=== PATIENT | female | born 1975 | race Asian ===

== ENCOUNTER 2017-12-05 11:13 | Inpatient (IN) | payer OTHER ==
[~2017-12-05] VITALS: Ht 160 cm; Wt 66.0 kg
[~2017-12-05 11:13] MED LIST: ALBU8HFA IH; HYDR-3965 PO; INSNOV SQ; IPRNEB IH; LABE300T PO; PANT40TA25 PO
[2017-12-05 11:47] LABS: BASOPHILS # (AUTO) 0.12 K/uL (0.00-0.20); BASOPHILS % (AUTO) 0.7 % (0.0-2.0); EOSINOPHILS # (AUTO) 0.03 K/uL (0.00-0.70); EOSINOPHILS % (AUTO) 0.19 % (1.0-6.0); HEMATOCRIT 41.6 % (36-46); HEMOGLOBIN 13.7 g/dL (12.0-16.0); LYMPHOCYTES # (AUTO) 2.2 K/uL (1.0-4.8); LYMPHOCYTES % (AUTO) 12.9 % (22.0-44.0); MEAN CORPUSCULAR HEMOGLOBIN 31.2 pg (26.0-34.0); MEAN CORPUSCULAR VOLUME 95 fL (80-100); MONOCYTES # (AUTO) 0.3 K/uL (0.1-1.0); MONOCYTES % (AUTO) 1.9 % (2.0-9.0); NEUTROPHILS % (AUTO) 84.4 % (40.0-70.0); PLATELET COUNT (AUTO) 199 K/uL (150-450); RED CELL DISTRIBUTION WIDTH 16.8 % (11.5-14.5)
[2017-12-05] MEDS ORDERED: ONDANSETRON HCL 4 MG/2 ML VIAL IVP ONE (12:00)
[2017-12-05] MEDS ORDERED: NITROGLYCERIN 2% (1 GM=INCH) PACKET TP ONE (12:00)
[2017-12-05 12:01] LABS: PROTHROMBIN TIME 10.4 SEC (9.4-11.6)
[2017-12-05] MEDS ORDERED: MORPHINE SULFATE 4 MG/ML SYRINGE IVP ONE (12:15)
[2017-12-05 12:27] LABS: ALANINE AMINOTRANSFERASE 21 U/L (12-78); ALKALINE PHOSPHATASE 75 U/L (46-116); ANION GAP 17 mmol/L (8-16); ASPARTATE AMINOTRANSFERASE 18 U/L (15-37); BILIRUBIN,TOTAL 0.4 mg/dL (0.1-1.0); CALCIUM, TOTAL 10.4 mg/dL (8.8-10.5); CARBON DIOXIDE 17 mmol/L (22-29); CHLORIDE 96 mmol/L (98-107); CREATINE KINASE MB 4.4 ng/mL (0-5); CREATINE KINASE, TOTAL 170 U/L (26-192); CREATININE 13.01 mg/dL (0.60-1.30); GLOMERULAR FILTR. RATE CALC 3 mL/min (>60); GLUCOSE,RANDOM 223 mg/dL (70-110); SODIUM SERUM 130 mmol/L (136-145); TOTAL PROTEIN, SERUM 8.4 g/dL (6.4-8.2)
[2017-12-05] MEDS ORDERED: LORazepam 2 MG/ML VIAL IVP ONE (12:30)
[2017-12-05 12:36] LABS: POTASSIUM 7.3 mmol/L (3.5-5.1); UREA NITROGEN, BLOOD 110 mg/dL (7-18)
[2017-12-05] MEDS ORDERED: DEXTROSE 50%-WATER 25 GM/50 ML SYRINGE IVP ONE (12:45)
[2017-12-05] MEDS ORDERED: ALBUTEROL SULFATE 2.5 MG/0.5 ML NEB SOLUTION NEB ONE (12:45)
[2017-12-05] MEDS ORDERED: INSULIN REGULAR, HUMAN 100 UNITS/ML IVP ONE (12:45)
[2017-12-05] MEDS ORDERED: SODIUM BICARBONATE [ADULT] 8.4% 50 MEQ/50 ML SYRINGE IVP ONE (12:45)
[2017-12-05] MEDS ORDERED: 0.9% SODIUM CHLORIDE 5 ML NEB SOLUTION NEB ONE (12:55)
[2017-12-05] MEDS: SODIUM POLYSTYRENE SULFONATE 15 GM/60 ML SUSPENSION BOTTLE PO ONE ×2 (12:55→13:25)
[2017-12-05] MEDS ORDERED: CALCIUM GLUCONATE 100 MG/ML 10 ML IVP ONE (13:00)
[2017-12-05] MEDS ORDERED: ACETAMINOPHEN 325 MG TABLET PO PRN ×2 (13:15→15:45)
[2017-12-05] MEDS ORDERED: 0.9% SODIUM CHLORIDE 10 ML SYRINGE IVP PRN (13:15)
[2017-12-05 13:32] LABS: LIPASE 1141 U/L (73-393)
[2017-12-05 14:27] VITALS: BP 150/92
[2017-12-05] MEDS ORDERED: LIDOCAINE HCL/PF 1% 2 ML VIAL IM ONE (14:51)
[2017-12-05] MEDS ORDERED: HydrALAZINE HCL 20 MG/ML VIAL IVP PRN (15:45)
[2017-12-05] MEDS ORDERED: BISACODYL 10 MG RECTAL RECTAL SUPPOSITORY PR PRN (15:45)
[2017-12-05] MEDS ORDERED: MAGNESIUM HYDROXIDE SUSPENSION 30 ML UDCUP PO PRN (15:45)
[2017-12-05 15:51] VITALS: BP 126/73
[2017-12-05] MEDS: HEPARIN SODIUM,PORCINE 5,000 UNITS/ML VIAL SQ SCH ×2 (18:02→22:58)
[2017-12-05] MEDS: ONDANSETRON HCL 4 MG/2 ML VIAL IVP PRN ×2 (18:10→22:57)
[2017-12-05 18:12] LABS: CALCIUM, TOTAL 6.5 mg/dL (8.8-10.5); CREATININE 3.14 mg/dL (0.60-1.30)
[2017-12-05] MEDS: MORPHINE SULFATE 2 MG/ML SYRINGE IVP PRN ×2 (18:16→21:49)
[2017-12-05 18:26] LABS: POTASSIUM 2.6 mmol/L (3.5-5.1)
[2017-12-05 19:15] VITALS: BP 135/82
[2017-12-05 19:37] LABS: CALCIUM, TOTAL 9.4 mg/dL (8.8-10.5); CREATININE 6.14 mg/dL (0.60-1.30); POTASSIUM 4.4 mmol/L (3.5-5.1)
[2017-12-05] MEDS: DOCUSATE SODIUM 100 MG CAPSULE PO SCH (20:14)
[2017-12-05] MEDS: LABETALOL HCL 100 MG TABLET PO SCH (20:15)
[2017-12-05 21:45] VITALS: BP 132/75
[2017-12-05 23:05] VITALS: BP 153/74
[2017-12-06 04:04] VITALS: BP 139/85
[2017-12-06 06:33] LABS: BASOPHILS % (AUTO) 0.3 % (0.0-2.0); EOSINOPHILS % (AUTO) 0.5 % (1.0-6.0); HEMATOCRIT 40.3 % (36-46); HEMOGLOBIN 13.5 g/dL (12.0-16.0); LYMPHOCYTES # (AUTO) 1.4 K/uL (1.0-4.8); MEAN CORPUSCULAR HEMOGLOBIN 31.2 pg (26.0-34.0); MEAN CORPUSCULAR HGB CONC 33.4 G/dL (31.0-37.0); MEAN CORPUSCULAR VOLUME 93 fL (80-100); MONOCYTES # (AUTO) 0.6 K/uL (0.1-1.0); MONOCYTES % (AUTO) 5.5 % (2.0-9.0); NEUTROPHILS % (AUTO) 79.7 % (40.0-70.0); PLATELET COUNT (AUTO) 180 K/uL (150-450); RED BLOOD CELL COUNT(AUTO) 4.32 MIL/uL (4.00-5.20); RED CELL DISTRIBUTION WIDTH 16.9 % (11.5-14.5)
[2017-12-06 07:09] LABS: ALBUMIN 3.7 g/dL (3.4-5.0); BILIRUBIN,TOTAL 0.4 mg/dL (0.1-1.0); CALCIUM, TOTAL 8.8 mg/dL (8.8-10.5); CREATININE 8.24 mg/dL (0.60-1.30); HEMOGLOBIN A1C 6.1 % (4.5-6.2); TOTAL PROTEIN, SERUM 7.8 g/dL (6.4-8.2)
[2017-12-06 07:15] LABS: POTASSIUM 5.9 mmol/L (3.5-5.1)
[2017-12-06 07:50] VITALS: BP 134/76
[2017-12-06] MEDS: PANTOPRAZOLE SODIUM 40 MG DR TABLET PO SCH (08:51)
[2017-12-06] MEDS: DOCUSATE SODIUM 100 MG CAPSULE PO SCH ×2 (08:51→19:56)
[2017-12-06] MEDS: HEPARIN SODIUM,PORCINE 5,000 UNITS/ML VIAL SQ SCH ×3 (08:51→23:27)
[2017-12-06] MEDS: ONDANSETRON HCL 4 MG/2 ML VIAL IVP PRN ×2 (08:51→18:52)
[2017-12-06] MEDS: LABETALOL HCL 100 MG TABLET PO SCH ×2 (08:54→19:56)
[2017-12-06] MEDS: MORPHINE SULFATE 2 MG/ML SYRINGE IVP PRN ×4 (08:55→23:28)
[2017-12-06 10:44] VITALS: BP 141/82
[2017-12-06] MEDS ORDERED: SODIUM CHLORIDE 0.9% 3,000 ML IV ONE (10:45)
[2017-12-06 11:50] LABS: APPEARANCE,URINE CLOUDY (CLEAR); BILIRUBIN,URINE NEGATIVE (NEGATIVE); GLUCOSE, URINE (UA) 500 mg/dL (NEGATIVE); KETONES,URINE NEGATIVE (NEGATIVE); LEUKOCYTE ESTERASE ,URINE SMALL (NEGATIVE); NITRATE,URINE NEGATIVE (NEGATIVE); OCCULT BLOOD,URINE MODERATE (NEGATIVE); PH,URINE 7.5 (5.0-8.0); PROTEIN,URINE SEE CONFIRM (NEGATIVE); UROBILINOGEN,URINE 0.2 mg/dL (<=1.0)
[2017-12-06] MEDS ORDERED: DEXTROSE 50%-WATER 25 GM/50 ML SYRINGE IVP PRN (12:00)
[2017-12-06 12:06] LABS: SULFOSALICYLIC ACID,URINE 3+ (Negative)
[2017-12-06 12:11] LABS: BACTERIA,URINE Moderate /HPF (None Seen); SQUAMOUS EPITHELIAL CELL,UR Many /LPF (None Seen)
[2017-12-06 12:12] LABS: MUCUS,URINE Few LPF (None Seen)
[2017-12-06 16:18] LABS: GLUCOMETER DEV NAME(LOC) 5S 1L; GLUCOSE,POINT OF CARE 112 MG/DL (70-110)
[2017-12-06] MEDS: INSULIN ASPART 100 UNITS/ML SQ PRN ×2 (17:42→21:08)
[2017-12-06] MEDS: HYDROCODONE/ACETAMINOPHEN 5-325 MG TABLET PO PRN (18:31)
[2017-12-06 19:49] VITALS: BP 164/99
[2017-12-06 21:07] LABS: GLUCOMETER DEV NAME(LOC) 6N 2D; GLUCOSE,POINT OF CARE 161 MG/DL (70-110)
[2017-12-06] MEDS: ZOLPIDEM TARTRATE 5 MG TABLET PO PRN (21:13)
[2017-12-07] MEDS: ONDANSETRON HCL 4 MG/2 ML VIAL IVP PRN ×3 (01:11→17:31)
[2017-12-07 02:58] VITALS: BP 160/102
[2017-12-07] MEDS: MORPHINE SULFATE 2 MG/ML SYRINGE IVP PRN ×4 (06:18→19:00)
[2017-12-07 06:28] LABS: GLUCOMETER DEV NAME(LOC) 6N 1E; GLUCOSE,POINT OF CARE 193 MG/DL (70-110)
[2017-12-07 06:57] LABS: GLUCOMETER DEV NAME(LOC) 5N 1M; GLUCOSE,POINT OF CARE 157 MG/DL (70-110)
[2017-12-07 07:59] VITALS: BP 146/80
[2017-12-07] MEDS: HEPARIN SODIUM,PORCINE 5,000 UNITS/ML VIAL SQ SCH ×3 (08:04→23:48)
[2017-12-07] MEDS: LABETALOL HCL 100 MG TABLET PO SCH ×2 (08:13→22:25)
[2017-12-07] MEDS: DOCUSATE SODIUM 100 MG CAPSULE PO SCH ×3 (08:16→22:25)
[2017-12-07] MEDS: HYDROCODONE/ACETAMINOPHEN 5-325 MG TABLET PO PRN ×3 (08:16→16:13)
[2017-12-07] MEDS: PANTOPRAZOLE SODIUM 40 MG DR TABLET PO SCH (08:16)
[2017-12-07 08:32] LABS: BASOPHILS % (AUTO) 0.4 % (0.0-2.0); EOSINOPHILS % (AUTO) 0.2 % (1.0-6.0); HEMOGLOBIN 14.5 g/dL (12.0-16.0); LYMPHOCYTES # (AUTO) 1.5 K/uL (1.0-4.8); LYMPHOCYTES % (AUTO) 14.8 % (22.0-44.0); MEAN CORPUSCULAR HEMOGLOBIN 31.2 pg (26.0-34.0); MEAN CORPUSCULAR VOLUME 94 fL (80-100); MONOCYTES # (AUTO) 0.5 K/uL (0.1-1.0); NEUTROPHILS # (AUTO) 8.2 K/uL (1.8-7.7); NEUTROPHILS % (AUTO) 79.6 % (40.0-70.0); PLATELET COUNT (AUTO) 231 K/uL (150-450); RED BLOOD CELL COUNT(AUTO) 4.65 MIL/uL (4.00-5.20); RED CELL DISTRIBUTION WIDTH 16.8 % (11.5-14.5)
[2017-12-07 08:36] LABS: CALCIUM, TOTAL 8.5 mg/dL (8.8-10.5); CREATININE 7.86 mg/dL (0.60-1.30); MAGNESIUM 2.2 mg/dL (1.80-2.40); PHOSPHORUS 6.6 mg/dL (2.5-4.9); POTASSIUM 5.6 mmol/L (3.5-5.1)
[2017-12-07 11:38] VITALS: BP 152/97
[2017-12-07] MEDS: INSULIN ASPART 100 UNITS/ML SQ PRN (12:01)
[2017-12-07] MEDS ORDERED: METOCLOPRAMIDE HCL 10 MG TABLET PO ONE (12:15)
[2017-12-07] MEDS ORDERED: SODIUM POLYSTYRENE SULFONATE 15 GM/60 ML SUSPENSION BOTTLE PO ONE (13:00)
[2017-12-07] MEDS: CefTRIAXone 1 GM/DEXTROSE 50 ML IV SCH (15:27)
[2017-12-07 15:49] VITALS: BP 105/91
[2017-12-07] MEDS: METOCLOPRAMIDE HCL 5 MG/ML 2 ML VIAL IVP SCH ×2 (16:09→23:48)
[2017-12-07 17:03] LABS: GLUCOMETER DEV NAME(LOC) 6N 1E; GLUCOSE,POINT OF CARE 209 MG/DL (70-110)
[2017-12-07] MEDS: SEVELAMER CARBONATE 800 MG TABLET PO SCH ×2 (18:00→19:05)
[2017-12-07 20:16] VITALS: BP 133/76
[2017-12-07] MEDS: ZOLPIDEM TARTRATE 5 MG TABLET PO PRN (23:48)
[2017-12-08 00:42] LABS: GLUCOMETER DEV NAME(LOC) 6N 2D; GLUCOSE,POINT OF CARE 183 MG/DL (70-110)
[2017-12-08 02:52] LABS: AMPHET/METH SCREEN,URINE NEGATIVE (NEGATIVE); BARBITURATE SCREEN, URINE NEGATIVE (NEGATIVE); BENZODIAZEPINES SCREEN,URINE NEGATIVE (NEGATIVE); CANNABINOID SCREEN,URINE POSITIVE (NEGATIVE); COCAINE SCREEN,URINE NEGATIVE (NEGATIVE); METHADONE SCREEN, URINE NEGATIVE (NEGATIVE); OPIATE SCREEN,URINE POSITIVE (NEGATIVE)
[2017-12-08 02:53] LABS: PHENCYCLIDINE SCREEN,URINE NEGATIVE (NEGATIVE)
[2017-12-08 04:28] LABS: GLUCOMETER DEV NAME(LOC) 5N 2R; GLUCOSE,POINT OF CARE 132 MG/DL (70-110)
[2017-12-08] MEDS: ONDANSETRON HCL 4 MG/2 ML VIAL IVP PRN ×2 (04:51→17:10)
[2017-12-08] MEDS: MORPHINE SULFATE 2 MG/ML SYRINGE IVP PRN ×4 (04:52→17:45)
[2017-12-08 05:02] VITALS: BP 105/60
[2017-12-08 05:58] LABS: GLUCOMETER DEV NAME(LOC) 5N 2R; GLUCOSE,POINT OF CARE 99 MG/DL (70-110)
[2017-12-08 06:51] LABS: BASOPHILS % (AUTO) 0.5 % (0.0-2.0); EOSINOPHILS % (AUTO) 1.2 % (1.0-6.0); HEMATOCRIT 42.3 % (36-46); HEMOGLOBIN 13.7 g/dL (12.0-16.0); LYMPHOCYTES # (AUTO) 2.7 K/uL (1.0-4.8); LYMPHOCYTES % (AUTO) 24.6 % (22.0-44.0); MEAN CORPUSCULAR HEMOGLOBIN 31.2 pg (26.0-34.0); MEAN CORPUSCULAR HGB CONC 32.4 G/dL (31.0-37.0); MEAN CORPUSCULAR VOLUME 96 fL (80-100); MONOCYTES # (AUTO) 0.6 K/uL (0.1-1.0); MONOCYTES % (AUTO) 5.8 % (2.0-9.0); NEUTROPHILS # (AUTO) 7.6 K/uL (1.8-7.7); NEUTROPHILS % (AUTO) 67.9 % (40.0-70.0); PLATELET COUNT (AUTO) 232 K/uL (150-450); RED BLOOD CELL COUNT(AUTO) 4.41 MIL/uL (4.00-5.20); RED CELL DISTRIBUTION WIDTH 16.7 % (11.5-14.5)
[2017-12-08 07:09] LABS: CALCIUM, TOTAL 7.7 mg/dL (8.8-10.5); CREATININE 10.35 mg/dL (0.60-1.30); POTASSIUM 4.9 mmol/L (3.5-5.1)
[2017-12-08 08:00] VITALS: BP 156/80
[2017-12-08] MEDS: SEVELAMER CARBONATE 800 MG TABLET PO SCH ×3 (08:18→18:30)
[2017-12-08] MEDS: METOCLOPRAMIDE HCL 5 MG/ML 2 ML VIAL IVP SCH (08:18)
[2017-12-08] MEDS: HEPARIN SODIUM,PORCINE 5,000 UNITS/ML VIAL SQ SCH ×3 (08:18→23:45)
[2017-12-08] MEDS: DOCUSATE SODIUM 100 MG CAPSULE PO SCH ×2 (09:00→20:14)
[2017-12-08] MEDS: PANTOPRAZOLE SODIUM 40 MG DR TABLET PO SCH (12:53)
[2017-12-08 12:56] VITALS: BP 159/87
[2017-12-08] MEDS: LABETALOL HCL 100 MG TABLET PO SCH ×2 (12:57→20:33)
[2017-12-08] MEDS: INSULIN ASPART 100 UNITS/ML SQ PRN ×2 (12:59→20:19)
[2017-12-08] MEDS: CefTRIAXone 1 GM/DEXTROSE 50 ML IV SCH (13:11)
[2017-12-08] MEDS ORDERED: LIDOCAINE HCL/PF 1% 2 ML VIAL IARTIC ONE (14:51)
[2017-12-08 16:05] VITALS: BP 129/88
[2017-12-08] MEDS: HALOPERIDOL 1 MG TABLET PO SCH ×2 (16:12→20:14)
[2017-12-08 17:17] LABS: GLUCOMETER DEV NAME(LOC) 5N 2R; GLUCOSE,POINT OF CARE 152 MG/DL (70-110)
[2017-12-08 17:53] LABS: GLUCOMETER DEV NAME(LOC) 6N 2D; GLUCOSE,POINT OF CARE 153 MG/DL (70-110)
[2017-12-08 20:34] VITALS: BP 187/101
[2017-12-08 23:13] LABS: GLUCOMETER DEV NAME(LOC) 5N 2R; GLUCOSE,POINT OF CARE 184 MG/DL (70-110)
[2017-12-09 00:33] VITALS: BP 157/89
[2017-12-09 05:21] VITALS: BP 149/84
[2017-12-09 05:43] LABS: GLUCOMETER DEV NAME(LOC) 6N 1E; GLUCOSE,POINT OF CARE 108 MG/DL (70-110)
[2017-12-09 06:51] LABS: BASOPHILS % (AUTO) 0.5 % (0.0-2.0); EOSINOPHILS % (AUTO) 2.1 % (1.0-6.0); HEMATOCRIT 40.9 % (36-46); HEMOGLOBIN 13.4 g/dL (12.0-16.0); LYMPHOCYTES # (AUTO) 2.6 K/uL (1.0-4.8); LYMPHOCYTES % (AUTO) 28.7 % (22.0-44.0); MEAN CORPUSCULAR HEMOGLOBIN 31.2 pg (26.0-34.0); MEAN CORPUSCULAR HGB CONC 32.6 G/dL (31.0-37.0); MEAN CORPUSCULAR VOLUME 96 fL (80-100); MONOCYTES # (AUTO) 0.5 K/uL (0.1-1.0); MONOCYTES % (AUTO) 5.9 % (2.0-9.0); NEUTROPHILS # (AUTO) 5.6 K/uL (1.8-7.7); NEUTROPHILS % (AUTO) 62.8 % (40.0-70.0); PLATELET COUNT (AUTO) 203 K/uL (150-450); RED BLOOD CELL COUNT(AUTO) 4.28 MIL/uL (4.00-5.20); RED CELL DISTRIBUTION WIDTH 16.1 % (11.5-14.5)
[2017-12-09 06:59] LABS: CALCIUM, TOTAL 7.8 mg/dL (8.8-10.5); CREATININE 7.99 mg/dL (0.60-1.30); POTASSIUM 4.7 mmol/L (3.5-5.1)
[2017-12-09 07:16] VITALS: BP 133/88
[2017-12-09] MEDS: DOCUSATE SODIUM 100 MG CAPSULE PO SCH (08:51)
[2017-12-09] MEDS: SEVELAMER CARBONATE 800 MG TABLET PO SCH ×2 (08:51→12:34)
[2017-12-09] MEDS: HEPARIN SODIUM,PORCINE 5,000 UNITS/ML VIAL SQ SCH (08:52)
[2017-12-09] MEDS: HALOPERIDOL 1 MG TABLET PO SCH (08:52)
[2017-12-09] MEDS: LABETALOL HCL 100 MG TABLET PO SCH (08:52)
[2017-12-09] MEDS: PANTOPRAZOLE SODIUM 40 MG DR TABLET PO SCH (08:52)
[2017-12-09 11:58] VITALS: BP 138/77
[2017-12-09] MEDS: INSULIN ASPART 100 UNITS/ML SQ PRN (12:17)
[2017-12-09 12:18] LABS: GLUCOMETER DEV NAME(LOC) 6N 2D; GLUCOSE,POINT OF CARE 152 MG/DL (70-110)
[2017-12-09] MEDS ORDERED: CefTRIAXone SODIUM 1 GM/VIAL IVP SCH (13:00)
[2017-12-09] MEDS ORDERED: HALO.5 PO (14:01)
[2017-12-09] MEDS ORDERED: CIPR500S5 PO (14:02)
[2017-12-09] MEDS ORDERED: SEVEC800 PO (14:04)
[2017-12-09] MEDS ORDERED: LABE300T PO (14:04)
== END 2017-12-09 14:52 | disposition home or self-care (01) | DRG 282 ==
LOC: EMS 11:14 → 5S 13:34 → 6N 12-06 19:00
PROVIDERS: ADMIT Internal Medicine; ATTEND Internal Medicine
PROC: 5A1D70Z Performance of Urinary Filtration, Intermittent, Less than 6 Hours Per Day (ICD-10-PCS; principal; 2017-12-06)
PROC: 5A1D70Z Performance of Urinary Filtration, Intermittent, Less than 6 Hours Per Day (ICD-10-PCS; 2017-12-08)
DX: K85.90 Acute pancreatitis without necrosis or infection, unspecified (principal); I12.0 Hypertensive chronic kidney disease with stage 5 chronic kidney disease or end stage renal disease; N18.6 End stage renal disease; E11.21 Type 2 diabetes mellitus with diabetic nephropathy; R65.10 Systemic inflammatory response syndrome (SIRS) of non-infectious origin without acute organ dysfunction; E87.5 Hyperkalemia; E87.1 Hypo-osmolality and hyponatremia; N39.0 Urinary tract infection, site not specified; E11.22 Type 2 diabetes mellitus with diabetic chronic kidney disease; E78.00 Pure hypercholesterolemia, unspecified; E78.5 Hyperlipidemia, unspecified; D64.9 Anemia, unspecified; J45.909 Unspecified asthma, uncomplicated; Z87.891 Personal history of nicotine dependence; Z91.19 Patient's noncompliance with other medical treatment and regimen; Z99.2 Dependence on renal dialysis; Z79.899 Other long term (current) drug therapy; Z90.49 Acquired absence of other specified parts of digestive tract; Z79.4 Long term (current) use of insulin
CPT/HCPCS: 80307; 82962; 83036; 83735; 84100; 84520; 87081; 87086; 93005; 94640; 96374; 96375; 99291; J0610; J0696; J1644; J1815; J2060; J2270; J2405; J2765; J3490; J7030

== ENCOUNTER 2018-02-21 11:04 | Inpatient (IN) | payer OTHER ==
[~2018-02-21] VITALS: Ht 160 cm; Wt 64.1 kg
[~2018-02-21 11:04] MED LIST changes: +CIPR500S5 PO; +HALO.5 PO; +SEVEC800 PO
[2018-02-21 11:30] LABS: BASOPHILS % (AUTO) 1.1 % (0.0-2.0); HEMATOCRIT 35.9 % (36-46); HEMOGLOBIN 12.2 g/dL (12.0-16.0); LYMPHOCYTES # (AUTO) 1.6 K/uL (1.0-4.8); LYMPHOCYTES % (AUTO) 22.4 % (22.0-44.0); MEAN CORPUSCULAR HEMOGLOBIN 30.4 pg (26.0-34.0); MEAN CORPUSCULAR HGB CONC 33.9 G/dL (31.0-37.0); MEAN CORPUSCULAR VOLUME 90 fL (80-100); MONOCYTES # (AUTO) 0.4 K/uL (0.1-1.0); MONOCYTES % (AUTO) 5.5 % (2.0-9.0); NEUTROPHILS # (AUTO) 4.8 K/uL (1.8-7.7); PLATELET COUNT (AUTO) 239 K/uL (150-450); RED CELL DISTRIBUTION WIDTH 15.8 % (11.5-14.5)
[2018-02-21 11:39] LABS: ANION GAP 19 mmol/L (8-16); CALCIUM, TOTAL 11.1 mg/dL (8.8-10.5); CARBON DIOXIDE 21 mmol/L (22-29); CHLORIDE 89 mmol/L (98-107); CREATININE 13.94 mg/dL (0.60-1.30); GLOMERULAR FILTR. RATE CALC 3 mL/min (>60); GLUCOSE,RANDOM 188 mg/dL (70-110); POTASSIUM 5.2 mmol/L (3.5-5.1); SODIUM SERUM 129 mmol/L (136-145); UREA NITROGEN, BLOOD 97 mg/dL (7-18)
[2018-02-21 11:45] LABS: ALANINE AMINOTRANSFERASE 32 U/L (12-78); ALBUMIN 4.1 g/dL (3.4-5.0); ALKALINE PHOSPHATASE 55 U/L (46-116); ASPARTATE AMINOTRANSFERASE 23 U/L (15-37); BILIRUBIN,TOTAL 0.6 mg/dL (0.1-1.0); TOTAL PROTEIN, SERUM 7.5 g/dL (6.4-8.2)
[2018-02-21] MEDS ORDERED: VITAMIN B COMP/VIT C/FOLIC ACID CAPSULE PO ONE (15:30)
[2018-02-21] MEDS ORDERED: HYDROCODONE/ACETAMINOPHEN 5-325 MG TABLET PO PRN ×2 (16:00→22:30)
[2018-02-21 16:19] VITALS: BP 156/90
[2018-02-21] MEDS ORDERED: SODIUM CHLORIDE 0.9% 2,000 ML IV ONE (17:38)
[2018-02-21] MEDS: CALCIUM ACETATE 667 MG CAPSULE PO SCH (17:51)
[2018-02-21] MEDS: SEVELAMER CARBONATE 800 MG TABLET PO SCH (17:51)
[2018-02-21 19:59] VITALS: BP 151/89
[2018-02-21] MEDS ORDERED: IPRATROPIUM BROMIDE 0.5 MG/2.5 ML NEB SOLUTION NEB PRN (22:30)
[2018-02-21] MEDS ORDERED: ALBUTEROL SULFATE 2.5 MG/0.5 ML NEB SOLUTION NEB PRN (22:30)
[2018-02-21] MEDS ORDERED: DEXTROSE 50%-WATER 25 GM/50 ML SYRINGE IVP PRN (22:30)
[2018-02-21] MEDS: HALOPERIDOL 1 MG TABLET PO PRN (23:47)
[2018-02-21] MEDS: HEPARIN SODIUM,PORCINE 5,000 UNITS/ML VIAL SQ SCH (23:48)
[2018-02-21 23:55] VITALS: BP 153/92
[2018-02-22] MEDS ORDERED: SODI650T PO (01:17)
[2018-02-22] MEDS ORDERED: QUET25TA PO (01:17)
[2018-02-22] MEDS ORDERED: PHOSLOC PO (01:17)
[2018-02-22] MEDS ORDERED: AMLO-512 PO (01:17)
[2018-02-22] MEDS: ZOLPIDEM TARTRATE 5 MG TABLET PO PRN ×2 (01:38→23:38)
[2018-02-22 07:39] VITALS: BP 149/97
[2018-02-22] MEDS: IPRATROPIUM BROMIDE 0.5 MG/2.5 ML NEB SOLUTION NEB SCH ×3 (08:00→19:36)
[2018-02-22] MEDS: ALBUTEROL SULFATE 2.5 MG/0.5 ML NEB SOLUTION NEB SCH ×3 (08:00→19:36)
[2018-02-22] MEDS: SEVELAMER CARBONATE 800 MG TABLET PO SCH ×3 (08:00→17:52)
[2018-02-22] MEDS: CALCIUM ACETATE 667 MG CAPSULE PO SCH ×3 (08:00→17:52)
[2018-02-22] MEDS: HEPARIN SODIUM,PORCINE 5,000 UNITS/ML VIAL SQ SCH ×3 (08:00→23:39)
[2018-02-22] MEDS: ONDANSETRON HCL 4 MG/2 ML VIAL IVP PRN (08:27)
[2018-02-22] MEDS ORDERED: PANTOPRAZOLE SODIUM 40 MG DR TABLET PO SCH ×2 (09:00→12:00)
[2018-02-22] MEDS ORDERED: LABETALOL HCL 100 MG TABLET PO SCH (09:00)
[2018-02-22 11:24] VITALS: BP 108/82
[2018-02-22] MEDS: METOPROLOL SUCCINATE 50 MG ER TABLET PO SCH (11:38)
[2018-02-22] MEDS: PANTOPRAZOLE SODIUM 40 MG/VIAL IVP SCH (11:38)
[2018-02-22 15:43] VITALS: BP 131/92
[2018-02-22 19:26] VITALS: BP 146/76
[2018-02-22 19:28] LABS: GLUCOMETER DEV NAME(LOC) 5S 2N; GLUCOSE,POINT OF CARE 109 MG/DL (70-110)
[2018-02-22 19:28] LABS: GLUCOMETER DEV NAME(LOC) 5S 2N; GLUCOSE,POINT OF CARE 88 MG/DL (70-110)
[2018-02-22 19:48] LABS: GLUCOMETER DEV NAME(LOC) 5N 2S; GLUCOSE,POINT OF CARE 100 MG/DL (70-110)
[2018-02-22 21:02] LABS: GLUCOMETER DEV NAME(LOC) 5S 1M; GLUCOSE,POINT OF CARE 194 MG/DL (70-110)
[2018-02-22] MEDS: HALOPERIDOL 1 MG TABLET PO PRN (21:09)
[2018-02-22] MEDS: INSULIN LISPRO 100 UNITS/ML SQ PRN (21:11)
[2018-02-22] MEDS ORDERED: LIDOCAINE HCL/PF 1% 2 ML VIAL IM ONE (22:22)
[2018-02-22 23:04] VITALS: BP 137/92
[2018-02-23] MEDS: ALBUTEROL SULFATE 2.5 MG/0.5 ML NEB SOLUTION NEB SCH ×4 (02:11→19:37)
[2018-02-23] MEDS: IPRATROPIUM BROMIDE 0.5 MG/2.5 ML NEB SOLUTION NEB SCH ×4 (02:11→19:37)
[2018-02-23 07:36] VITALS: BP 145/92
[2018-02-23] MEDS: PANTOPRAZOLE SODIUM 40 MG/VIAL IVP SCH (07:51)
[2018-02-23] MEDS: CALCIUM ACETATE 667 MG CAPSULE PO SCH ×3 (07:51→16:47)
[2018-02-23] MEDS: METOPROLOL SUCCINATE 50 MG ER TABLET PO SCH (07:51)
[2018-02-23] MEDS: VITAMIN B COMP/VIT C/FOLIC ACID CAPSULE PO SCH (07:51)
[2018-02-23] MEDS: SEVELAMER CARBONATE 800 MG TABLET PO SCH ×3 (07:51→17:36)
[2018-02-23] MEDS: HEPARIN SODIUM,PORCINE 5,000 UNITS/ML VIAL SQ SCH ×2 (07:51→16:47)
[2018-02-23] MEDS: HALOPERIDOL 1 MG TABLET PO PRN ×2 (08:42→21:00)
[2018-02-23 11:30] VITALS: BP 137/78
[2018-02-23] MEDS: INSULIN LISPRO 100 UNITS/ML SQ PRN ×2 (12:24→17:38)
[2018-02-23 15:05] VITALS: BP 148/83
[2018-02-23 16:58] LABS: GLUCOMETER DEV NAME(LOC) 5S 1M; GLUCOSE,POINT OF CARE 97 MG/DL (70-110)
[2018-02-23 16:58] LABS: GLUCOMETER DEV NAME(LOC) 5S 1M; GLUCOSE,POINT OF CARE 155 MG/DL (70-110)
[2018-02-23 17:02] LABS: AMPHET/METH SCREEN,URINE NEGATIVE (NEGATIVE); BARBITURATE SCREEN, URINE NEGATIVE (NEGATIVE); BENZODIAZEPINES SCREEN,URINE NEGATIVE (NEGATIVE); CANNABINOID SCREEN,URINE NEGATIVE (NEGATIVE); COCAINE SCREEN,URINE NEGATIVE (NEGATIVE); METHADONE SCREEN, URINE NEGATIVE (NEGATIVE); OPIATE SCREEN,URINE NEGATIVE (NEGATIVE); PHENCYCLIDINE SCREEN,URINE NEGATIVE (NEGATIVE)
[2018-02-23 20:38] VITALS: BP 158/98
[2018-02-24] MEDS: HEPARIN SODIUM,PORCINE 5,000 UNITS/ML VIAL SQ SCH ×3 (00:15→16:28)
[2018-02-24 00:53] VITALS: BP 157/93
[2018-02-24] MEDS: IPRATROPIUM BROMIDE 0.5 MG/2.5 ML NEB SOLUTION NEB SCH ×4 (02:16→20:00)
[2018-02-24] MEDS: ALBUTEROL SULFATE 2.5 MG/0.5 ML NEB SOLUTION NEB SCH ×4 (02:16→20:01)
[2018-02-24 05:00] VITALS: BP 148/94
[2018-02-24 06:03] LABS: GLUCOMETER DEV NAME(LOC) 5S 2N; GLUCOSE,POINT OF CARE 171 MG/DL (70-110)
[2018-02-24 07:14] VITALS: BP 165/99
[2018-02-24 07:43] LABS: GLUCOMETER DEV NAME(LOC) 5S 1M; GLUCOSE,POINT OF CARE 132 MG/DL (70-110)
[2018-02-24 07:43] LABS: GLUCOMETER DEV NAME(LOC) 5S 1M; GLUCOSE,POINT OF CARE 83 MG/DL (70-110)
[2018-02-24] MEDS: METOPROLOL SUCCINATE 50 MG ER TABLET PO SCH (08:14)
[2018-02-24] MEDS: PANTOPRAZOLE SODIUM 40 MG/VIAL IVP SCH (08:14)
[2018-02-24] MEDS: CALCIUM ACETATE 667 MG CAPSULE PO SCH ×3 (08:14→17:48)
[2018-02-24] MEDS: VITAMIN B COMP/VIT C/FOLIC ACID CAPSULE PO SCH (08:14)
[2018-02-24] MEDS: SEVELAMER CARBONATE 800 MG TABLET PO SCH ×3 (08:14→17:48)
[2018-02-24] MEDS: HALOPERIDOL 1 MG TABLET PO PRN ×2 (09:52→17:49)
[2018-02-24 11:29] VITALS: BP 172/76
[2018-02-24 12:02] LABS: GLUCOMETER DEV NAME(LOC) 5S 1M; GLUCOSE,POINT OF CARE 139 MG/DL (70-110)
[2018-02-24 14:42] VITALS: BP 143/89
[2018-02-24] MEDS: INSULIN LISPRO 100 UNITS/ML SQ PRN ×2 (17:51→21:48)
[2018-02-24] MEDS: ONDANSETRON HCL 4 MG/2 ML VIAL IVP PRN (18:22)
[2018-02-24 21:02] VITALS: BP 164/98
[2018-02-24 21:55] LABS: GLUCOMETER DEV NAME(LOC) PVLAB134; GLUCOSE,POINT OF CARE 183 MG/DL (70-110)
[2018-02-24 21:55] LABS: GLUCOMETER DEV NAME(LOC) 5S 1M; GLUCOSE,POINT OF CARE 161 MG/DL (70-110)
[2018-02-24] MEDS: ZOLPIDEM TARTRATE 5 MG TABLET PO PRN (23:04)
[2018-02-25] MEDS: HEPARIN SODIUM,PORCINE 5,000 UNITS/ML VIAL SQ SCH ×2 (00:12→08:00)
[2018-02-25 00:16] VITALS: BP 183/95
[2018-02-25] MEDS ORDERED: CloNIDine HCL 0.1 MG TABLET PO PRN (01:00)
[2018-02-25] MEDS: IPRATROPIUM BROMIDE 0.5 MG/2.5 ML NEB SOLUTION NEB SCH ×2 (02:14→08:00)
[2018-02-25] MEDS: ALBUTEROL SULFATE 2.5 MG/0.5 ML NEB SOLUTION NEB SCH ×2 (02:14→08:00)
[2018-02-25 04:10] VITALS: BP 176/92
[2018-02-25 06:01] VITALS: BP 153/95
[2018-02-25] MEDS ORDERED: SODIUM CHLORIDE 0.9% 1,000 ML IV ONE ×2 (07:05)
[2018-02-25 07:13] VITALS: BP 160/92
[2018-02-25] MEDS: CALCIUM ACETATE 667 MG CAPSULE PO SCH ×2 (08:00→12:54)
[2018-02-25] MEDS: SEVELAMER CARBONATE 800 MG TABLET PO SCH ×2 (08:00→12:54)
[2018-02-25 08:08] LABS: GLUCOMETER DEV NAME(LOC) PVLAB134; GLUCOSE,POINT OF CARE 134 MG/DL (70-110)
[2018-02-25] MEDS ORDERED: ARIPiprazole 10 MG TABLET PO SCH (09:00)
[2018-02-25 11:02] VITALS: BP 143/84
[2018-02-25] MEDS ORDERED: METO-558 PO (11:36)
[2018-02-25] MEDS ORDERED: ARIP10TA8 PO (11:36)
[2018-02-25 12:27] LABS: GLUCOMETER DEV NAME(LOC) PVLAB134; GLUCOSE,POINT OF CARE 123 MG/DL (70-110)
[2018-02-25] MEDS: PANTOPRAZOLE SODIUM 40 MG/VIAL IVP SCH (12:55)
[2018-02-25] MEDS: METOPROLOL SUCCINATE 50 MG ER TABLET PO SCH (12:55)
[2018-02-25] MEDS: VITAMIN B COMP/VIT C/FOLIC ACID CAPSULE PO SCH (12:55)
[2018-02-25 14:44] LABS: BASOPHILS % (AUTO) 1.1 % (0.0-2.0); EOSINOPHILS % (AUTO) 2.9 % (1.0-6.0); HEMATOCRIT 36.5 % (36-46); HEMOGLOBIN 12.3 g/dL (12.0-16.0); LYMPHOCYTES # (AUTO) 2.1 K/uL (1.0-4.8); LYMPHOCYTES % (AUTO) 21.8 % (22.0-44.0); MEAN CORPUSCULAR HEMOGLOBIN 30.6 pg (26.0-34.0); MEAN CORPUSCULAR HGB CONC 33.8 G/dL (31.0-37.0); MEAN CORPUSCULAR VOLUME 91 fL (80-100); MONOCYTES # (AUTO) 0.4 K/uL (0.1-1.0); MONOCYTES % (AUTO) 4.5 % (2.0-9.0); NEUTROPHILS # (AUTO) 6.6 K/uL (1.8-7.7); NEUTROPHILS % (AUTO) 69.7 % (40.0-70.0); RED BLOOD CELL COUNT(AUTO) 4.02 MIL/uL (4.00-5.20); RED CELL DISTRIBUTION WIDTH 15.3 % (11.5-14.5)
[2018-02-25 15:24] LABS: ALBUMIN 3.7 g/dL (3.4-5.0); BILIRUBIN,TOTAL 0.5 mg/dL (0.1-1.0); CALCIUM, TOTAL 9.3 mg/dL (8.8-10.5); CREATININE 4.8 mg/dL (0.60-1.30); POTASSIUM 4.1 mmol/L (3.5-5.1); TOTAL PROTEIN, SERUM 7.7 g/dL (6.4-8.2)
[2018-02-25 15:40] LABS: PLATELET COUNT (AUTO) 139 K/uL (150-450)
== END 2018-02-25 15:20 | disposition home or self-care (01) | DRG 425 ==
LOC: EMS 11:05 → 5S 15:42
PROVIDERS: ADMIT Internal Medicine; ATTEND Internal Medicine
PROC: 5A1D70Z Performance of Urinary Filtration, Intermittent, Less than 6 Hours Per Day (ICD-10-PCS; principal; 2018-02-21)
PROC: 5A1D70Z Performance of Urinary Filtration, Intermittent, Less than 6 Hours Per Day (ICD-10-PCS; 2018-02-22)
PROC: 5A1D70Z Performance of Urinary Filtration, Intermittent, Less than 6 Hours Per Day (ICD-10-PCS; 2018-02-25)
DX: E87.5 Hyperkalemia (principal); I12.0 Hypertensive chronic kidney disease with stage 5 chronic kidney disease or end stage renal disease; N18.6 End stage renal disease; E87.2 Acidosis; E11.22 Type 2 diabetes mellitus with diabetic chronic kidney disease; F17.210 Nicotine dependence, cigarettes, uncomplicated; E87.1 Hypo-osmolality and hyponatremia; F12.90 Cannabis use, unspecified, uncomplicated; F31.9 Bipolar disorder, unspecified; F41.9 Anxiety disorder, unspecified; E78.00 Pure hypercholesterolemia, unspecified; Z82.49 Family history of ischemic heart disease and other diseases of the circulatory system; Z99.2 Dependence on renal dialysis; Z83.3 Family history of diabetes mellitus; Z79.899 Other long term (current) drug therapy; Z90.49 Acquired absence of other specified parts of digestive tract
CPT/HCPCS: 82962; 93005; 94640; 99285; C9113; G0480; J1644; J2405; J3490; J7030

== ENCOUNTER 2019-01-20 15:57 | Inpatient (IN) | payer OTHER ==
[~2019-01-20] VITALS: Ht 157.5 cm; Wt 69.2 kg
[~2019-01-20 15:57] MED LIST changes: +ALPR0.5T8 PO; +AMLO-512 PO; +ARIP10TA8 PO; -CIPR500S5 PO; -HALO.5 PO; -HYDR-3965 PO; -LABE300T PO; +PHOSLOC PO
[2019-01-20 16:33] LABS: GLUCOSE,POINT OF CARE 190 MG/DL (70-110)
[2019-01-20] MEDS ORDERED: ONDANSETRON HCL 4 MG/2 ML VIAL IVP ONE (16:45)
[2019-01-20] MEDS ORDERED: FentaNYL CITRATE-PF 100 MCG/2 ML VIAL IVP ONE (16:45)
[2019-01-20 16:58] LABS: BASOPHILS % (AUTO) 0.6 % (0.0-2.0); EOSINOPHILS % (AUTO) 3.1 % (1.0-6.0); HEMATOCRIT 33.7 % (36-46); HEMOGLOBIN 10.9 g/dL (12.0-16.0); LYMPHOCYTES # (AUTO) 0.9 K/uL (1.0-4.8); LYMPHOCYTES % (AUTO) 9.1 % (22.0-44.0); MEAN CORPUSCULAR HEMOGLOBIN 29.6 pg (26.0-34.0); MEAN CORPUSCULAR HGB CONC 32.4 G/dL (31.0-37.0); MEAN CORPUSCULAR VOLUME 92 fL (80-100); MONOCYTES # (AUTO) 0.4 K/uL (0.1-1.0); MONOCYTES % (AUTO) 3.7 % (2.0-9.0); NEUTROPHILS # (AUTO) 8.2 K/uL (1.8-7.7); NEUTROPHILS % (AUTO) 83.5 % (40.0-70.0); PLATELET COUNT (AUTO) 194 K/uL (150-450); RED BLOOD CELL COUNT(AUTO) 3.68 MIL/uL (4.00-5.20); RED CELL DISTRIBUTION WIDTH 17.1 % (11.5-14.5)
[2019-01-20 17:15] LABS: PROTHROMBIN TIME 10.5 SEC (9.4-11.6)
[2019-01-20 17:36] LABS: ALBUMIN 3.7 g/dL (3.4-5.0); BILIRUBIN,TOTAL 1.3 mg/dL (0.1-1.0); CALCIUM, TOTAL 8.4 mg/dL (8.8-10.5); CREATININE 11.73 mg/dL (0.60-1.30); TOTAL PROTEIN, SERUM 6.9 g/dL (6.4-8.2)
[2019-01-20 17:40] LABS: POTASSIUM 6.3 mmol/L (3.5-5.1)
[2019-01-20] MEDS ORDERED: IPRATROPIUM BROMIDE 0.5 MG/2.5 ML NEB SOLUTION NEB ONE (18:15)
[2019-01-20] MEDS ORDERED: SODIUM POLYSTYRENE SULFONATE 15 GM/60 ML SUSPENSION BOTTLE PO ONE (18:15)
[2019-01-20] MEDS ORDERED: CALCIUM GLUCONATE 100 MG/ML 10 ML IVP ONE (18:15)
[2019-01-20] MEDS ORDERED: ALBUTEROL SULFATE 5 MG/ML 20 ML NEB SOLN [BULK] NEB ONE (18:15)
[2019-01-20] MEDS ORDERED: 0.9% SODIUM CHLORIDE 5 ML NEB SOLUTION NEB ONE (18:30)
[2019-01-20] MEDS ORDERED: LORazepam 2 MG/ML VIAL IVP ONE (18:45)
[2019-01-20] MEDS ORDERED: HydrALAZINE HCL 20 MG/ML VIAL IVP ONE (20:00)
[2019-01-20 22:22] VITALS: BP 160/86
[2019-01-20] MEDS ORDERED: DEXTROSE 50%-WATER 25 GM/50 ML SYRINGE IVP ONE (23:00)
[2019-01-20] MEDS ORDERED: INSULIN REGULAR, HUMAN 100 UNITS/ML IVP ONE (23:00)
[2019-01-21] MEDS ORDERED: OxyCODONE HCL/ACETAMINOPHEN 5-325 MG TABLET PO PRN
[2019-01-21] MEDS ORDERED: 0.9% SODIUM CHLORIDE 10 ML SYRINGE IVP PRN
[2019-01-21] MEDS ORDERED: MAGNESIUM HYDROXIDE SUSPENSION 30 ML UDCUP PO PRN
[2019-01-21] MEDS ORDERED: ACETAMINOPHEN 325 MG TABLET PO PRN
[2019-01-21] MEDS ORDERED: ONDANSETRON HCL 4 MG/2 ML VIAL IVP PRN
[2019-01-21] MEDS ORDERED: DEXTROSE 50%-WATER 25 GM/50 ML SYRINGE IVP PRN (00:15)
[2019-01-21] MEDS: ALPRAZolam 0.5 MG TABLET PO PRN (00:16)
[2019-01-21] MEDS: OxyCODONE HCL/ACETAMINOPHEN 5-325 MG TABLET PO PRN ×4 (00:17→20:12)
[2019-01-21 06:44] LABS: GLUCOMETER DEV NAME(LOC) 5S.2; GLUCOSE,POINT OF CARE 125 MG/DL (70-110)
[2019-01-21 07:03] LABS: BASOPHILS % (AUTO) 0.6 % (0.0-2.0); EOSINOPHILS % (AUTO) 0.9 % (1.0-6.0); HEMATOCRIT 31.5 % (36-46); HEMOGLOBIN 10.2 g/dL (12.0-16.0); LYMPHOCYTES # (AUTO) 1.2 K/uL (1.0-4.8); LYMPHOCYTES % (AUTO) 15.6 % (22.0-44.0); MEAN CORPUSCULAR HEMOGLOBIN 30.3 pg (26.0-34.0); MEAN CORPUSCULAR HGB CONC 32.5 G/dL (31.0-37.0); MEAN CORPUSCULAR VOLUME 93 fL (80-100); MONOCYTES # (AUTO) 0.4 K/uL (0.1-1.0); MONOCYTES % (AUTO) 5.2 % (2.0-9.0); NEUTROPHILS # (AUTO) 6.1 K/uL (1.8-7.7); NEUTROPHILS % (AUTO) 77.7 % (40.0-70.0); PLATELET COUNT (AUTO) 201 K/uL (150-450); RED BLOOD CELL COUNT(AUTO) 3.38 MIL/uL (4.00-5.20); RED CELL DISTRIBUTION WIDTH 17.3 % (11.5-14.5)
[2019-01-21 07:17] LABS: CALCIUM, TOTAL 8.6 mg/dL (8.8-10.5); CREATININE 12.81 mg/dL (0.60-1.30)
[2019-01-21] MEDS: DOCUSATE SODIUM 100 MG CAPSULE PO SCH ×3 (08:04→20:12)
[2019-01-21] MEDS: PANTOPRAZOLE SODIUM 40 MG/VIAL IVP SCH (08:05)
[2019-01-21] MEDS: SEVELAMER CARBONATE 800 MG TABLET PO SCH ×3 (08:05→17:43)
[2019-01-21] MEDS: AmLODIPine BESYLATE 10 MG TABLET PO SCH (08:09)
[2019-01-21 08:20] VITALS: BP 163/94
[2019-01-21 12:18] VITALS: BP 174/100
[2019-01-21 12:38] LABS: GLUCOMETER DEV NAME(LOC) 5S.2; GLUCOSE,POINT OF CARE 107 MG/DL (70-110)
[2019-01-21] MEDS: VITAMIN B COMP/VIT C/FOLIC ACID CAPSULE PO SCH (13:21)
[2019-01-21] MEDS: ARIPiprazole 10 MG TABLET PO SCH (13:22)
[2019-01-21] MEDS: HydrALAZINE HCL 20 MG/ML VIAL IVP PRN (14:25)
[2019-01-21 14:26] VITALS: BP 185/96
[2019-01-21 16:12] VITALS: BP 150/77
[2019-01-21] MEDS: INSULIN LISPRO 100 UNITS/ML SQ PRN (17:47)
[2019-01-21 18:44] LABS: GLUCOMETER DEV NAME(LOC) 5N.2; GLUCOSE,POINT OF CARE 144 MG/DL (70-110)
[2019-01-21 19:10] VITALS: BP 155/70
[2019-01-21 23:52] VITALS: BP 163/86
[2019-01-22 01:13] LABS: GLUCOMETER DEV NAME(LOC) 5S.2; GLUCOSE,POINT OF CARE 131 MG/DL (70-110)
[2019-01-22 04:45] VITALS: BP 169/79
[2019-01-22 06:07] LABS: BASOPHILS % (AUTO) 0.8 % (0.0-2.0); EOSINOPHILS % (AUTO) 3.7 % (1.0-6.0); HEMATOCRIT 36.9 % (36-46); HEMOGLOBIN 12.1 g/dL (12.0-16.0); LYMPHOCYTES # (AUTO) 1.3 K/uL (1.0-4.8); LYMPHOCYTES % (AUTO) 15.3 % (22.0-44.0); MEAN CORPUSCULAR HEMOGLOBIN 30.9 pg (26.0-34.0); MEAN CORPUSCULAR HGB CONC 32.9 G/dL (31.0-37.0); MEAN CORPUSCULAR VOLUME 94 fL (80-100); MONOCYTES # (AUTO) 0.5 K/uL (0.1-1.0); NEUTROPHILS # (AUTO) 6.4 K/uL (1.8-7.7); NEUTROPHILS % (AUTO) 74.2 % (40.0-70.0); PLATELET COUNT (AUTO) 252 K/uL (150-450); RED BLOOD CELL COUNT(AUTO) 3.93 MIL/uL (4.00-5.20); RED CELL DISTRIBUTION WIDTH 17.2 % (11.5-14.5)
[2019-01-22 06:12] LABS: CREATININE 8.19 mg/dL (0.60-1.30); POTASSIUM 4.5 mmol/L (3.5-5.1)
[2019-01-22 06:48] LABS: GLUCOMETER DEV NAME(LOC) 5S.2; GLUCOSE,POINT OF CARE 146 MG/DL (70-110)
[2019-01-22 07:01] VITALS: BP 195/96
[2019-01-22] MEDS: HydrALAZINE HCL 20 MG/ML VIAL IVP PRN (07:55)
[2019-01-22] MEDS: ARIPiprazole 10 MG TABLET PO SCH (09:04)
[2019-01-22] MEDS: SEVELAMER CARBONATE 800 MG TABLET PO SCH ×3 (09:05→18:09)
[2019-01-22] MEDS: AmLODIPine BESYLATE 10 MG TABLET PO SCH (09:05)
[2019-01-22] MEDS: VITAMIN B COMP/VIT C/FOLIC ACID CAPSULE PO SCH (09:05)
[2019-01-22] MEDS: DOCUSATE SODIUM 100 MG CAPSULE PO SCH ×2 (09:05→20:26)
[2019-01-22] MEDS: PANTOPRAZOLE SODIUM 40 MG/VIAL IVP SCH (09:06)
[2019-01-22 11:20] VITALS: BP 178/70
[2019-01-22] MEDS: METOPROLOL TARTRATE 25 MG TABLET PO SCH ×2 (11:41→20:27)
[2019-01-22] MEDS: INSULIN LISPRO 100 UNITS/ML SQ PRN ×2 (11:54→18:10)
[2019-01-22] MEDS ORDERED: MANNITOL 25%-12.5 GM/50 ML VIAL IVP PRN (12:00)
[2019-01-22] MEDS ORDERED: SODIUM CHLORIDE 0.9% 2,000 ML IV ONE (12:59)
[2019-01-22 15:29] LABS: GLUCOMETER DEV NAME(LOC) 5S.2; GLUCOSE,POINT OF CARE 162 MG/DL (70-110)
[2019-01-22 15:36] VITALS: BP 173/89
[2019-01-22] MEDS: OxyCODONE HCL/ACETAMINOPHEN 5-325 MG TABLET PO PRN (18:39)
[2019-01-22 19:15] VITALS: BP 148/79
[2019-01-22] MEDS: ALPRAZolam 0.5 MG TABLET PO PRN (20:27)
[2019-01-22 23:30] VITALS: BP 140/76
[2019-01-23 04:16] VITALS: BP 161/86
[2019-01-23] MEDS: HydrALAZINE HCL 20 MG/ML VIAL IVP PRN (04:28)
[2019-01-23 06:12] LABS: BASOPHILS % (AUTO) 0.8 % (0.0-2.0); HEMATOCRIT 36.4 % (36-46); HEMOGLOBIN 11.9 g/dL (12.0-16.0); LYMPHOCYTES # (AUTO) 1.3 K/uL (1.0-4.8); MEAN CORPUSCULAR HEMOGLOBIN 30.2 pg (26.0-34.0); MEAN CORPUSCULAR HGB CONC 32.8 G/dL (31.0-37.0); MEAN CORPUSCULAR VOLUME 92 fL (80-100); MONOCYTES # (AUTO) 0.7 K/uL (0.1-1.0); MONOCYTES % (AUTO) 8.1 % (2.0-9.0); NEUTROPHILS % (AUTO) 71.1 % (40.0-70.0); PLATELET COUNT (AUTO) 249 K/uL (150-450); RED BLOOD CELL COUNT(AUTO) 3.95 MIL/uL (4.00-5.20); RED CELL DISTRIBUTION WIDTH 17.6 % (11.5-14.5)
[2019-01-23 06:27] LABS: CALCIUM, TOTAL 9.2 mg/dL (8.8-10.5); CREATININE 6.34 mg/dL (0.60-1.30); POTASSIUM 3.8 mmol/L (3.5-5.1)
[2019-01-23 07:29] LABS: GLUCOMETER DEV NAME(LOC) 5N.2; GLUCOSE,POINT OF CARE 111 MG/DL (70-110)
[2019-01-23 07:29] LABS: GLUCOMETER DEV NAME(LOC) 5N.2; GLUCOSE,POINT OF CARE 70 MG/DL (70-110)
[2019-01-23 07:29] LABS: GLUCOMETER DEV NAME(LOC) 5N.2; GLUCOSE,POINT OF CARE 219 MG/DL (70-110)
[2019-01-23 07:45] VITALS: BP 168/87
[2019-01-23] MEDS: SEVELAMER CARBONATE 800 MG TABLET PO SCH (08:35)
[2019-01-23] MEDS: PANTOPRAZOLE SODIUM 40 MG/VIAL IVP SCH (08:35)
[2019-01-23] MEDS: METOPROLOL TARTRATE 25 MG TABLET PO SCH (08:36)
[2019-01-23] MEDS: DOCUSATE SODIUM 100 MG CAPSULE PO SCH (08:36)
[2019-01-23] MEDS: ARIPiprazole 10 MG TABLET PO SCH (08:36)
[2019-01-23] MEDS: ALPRAZolam 0.5 MG TABLET PO PRN (08:37)
[2019-01-23] MEDS: AmLODIPine BESYLATE 10 MG TABLET PO SCH (08:37)
[2019-01-23] MEDS: VITAMIN B COMP/VIT C/FOLIC ACID CAPSULE PO SCH (08:37)
== END 2019-01-23 08:50 | disposition left against medical advice (07) | DRG 241 ==
LOC: EMS 15:59 → 5N 21:05
PROVIDERS: ADMIT Internal Medicine; ATTEND Internal Medicine
PROC: 5A1D70Z Performance of Urinary Filtration, Intermittent, Less than 6 Hours Per Day (ICD-10-PCS; principal; 2019-01-21)
PROC: 3E02340 Introduction of Influenza Vaccine into Muscle, Percutaneous Approach (ICD-10-PCS; 2019-01-21)
PROC: 5A1D70Z Performance of Urinary Filtration, Intermittent, Less than 6 Hours Per Day (ICD-10-PCS; 2019-01-22)
DX: K29.80 Duodenitis without bleeding (principal); E11.22 Type 2 diabetes mellitus with diabetic chronic kidney disease; K86.3 Pseudocyst of pancreas; I12.0 Hypertensive chronic kidney disease with stage 5 chronic kidney disease or end stage renal disease; E87.5 Hyperkalemia; N18.6 End stage renal disease; D64.9 Anemia, unspecified; R09.89 Other specified symptoms and signs involving the circulatory and respiratory systems; E78.00 Pure hypercholesterolemia, unspecified; E78.5 Hyperlipidemia, unspecified; F12.90 Cannabis use, unspecified, uncomplicated; F41.9 Anxiety disorder, unspecified; F32.9 Major depressive disorder, single episode, unspecified; Z53.21 Procedure and treatment not carried out due to patient leaving prior to being seen by health care provider; Z90.49 Acquired absence of other specified parts of digestive tract; Z99.2 Dependence on renal dialysis; Z79.4 Long term (current) use of insulin; Z23 Encounter for immunization
CPT/HCPCS: 74176; 84132; 87081; 87340; 90686; 93005; 94644; 96374; 96375; 99291; C9113; G0378; J0360; J0610; J1815; J2060; J2405; J3010; J7030

== ENCOUNTER 2019-03-24 14:22 | Inpatient (IN) | payer OTHER ==
[~2019-03-24] VITALS: Ht 160 cm; Wt 63.1 kg
[~2019-03-24 14:22] MED LIST changes: +LIDOCAINE/PF 1% 2 ML VIAL IM ONE
[2019-03-24 15:29] LABS: BASOPHILS % (AUTO) 0.7 % (0.0-2.0); EOSINOPHILS % (AUTO) 0.8 % (1.0-6.0); HEMATOCRIT 41.3 % (36-46); HEMOGLOBIN 13.2 g/dL (12.0-16.0); LYMPHOCYTES % (AUTO) 9.1 % (22.0-44.0); MEAN CORPUSCULAR HEMOGLOBIN 29.6 pg (26.0-34.0); MEAN CORPUSCULAR VOLUME 93 fL (80-100); MONOCYTES # (AUTO) 0.5 K/uL (0.1-1.0); MONOCYTES % (AUTO) 5.2 % (2.0-9.0); NEUTROPHILS # (AUTO) 8.9 K/uL (1.8-7.7); NEUTROPHILS % (AUTO) 84.2 % (40.0-70.0); PLATELET COUNT (AUTO) 226 K/uL (150-450); RED BLOOD CELL COUNT(AUTO) 4.46 MIL/uL (4.00-5.20); RED CELL DISTRIBUTION WIDTH 19.3 % (11.5-14.5)
[2019-03-24] MEDS ORDERED: LORazepam 1 MG TABLET PO ONE (15:30)
[2019-03-24] MEDS ORDERED: CloNIDine HCL 0.2 MG TABLET PO ONE (15:30)
[2019-03-24 16:27] LABS: ALKALINE PHOSPHATASE 115 U/L (46-116); ANION GAP 14 mmol/L (8-16); ASPARTATE AMINOTRANSFERASE 25 U/L (15-37); BILIRUBIN,TOTAL 0.8 mg/dL (0.1-1.0); CALCIUM, TOTAL 8.9 mg/dL (8.8-10.5); CARBON DIOXIDE 23 mmol/L (22-29); CHLORIDE 92 mmol/L (98-107); CREATINE KINASE, TOTAL ONLY 390 U/L (26-192); GLOMERULAR FILTR. RATE CALC 4 mL/min (>60); GLUCOSE,RANDOM 220 mg/dL (70-110); SODIUM SERUM 129 mmol/L (136-145); TOTAL PROTEIN, SERUM 7.3 g/dL (6.4-8.2); UREA NITROGEN, BLOOD 73 mg/dL (7-18)
[2019-03-24] MEDS ORDERED: LORazepam 2 MG/ML VIAL IM ONE (16:30)
[2019-03-24 16:43] LABS: POTASSIUM 7.1 mmol/L (3.5-5.1)
[2019-03-24 16:51] LABS: ALANINE AMINOTRANSFERASE 66 U/L (12-78); ALBUMIN 3.9 g/dL (3.4-5.0)
[2019-03-24] MEDS ORDERED: SODIUM POLYSTYRENE SULFONATE 15 GM/60 ML SUSPENSION BOTTLE PO ONE (17:00)
[2019-03-24] MEDS ORDERED: INSULIN REGULAR, HUMAN 100 UNITS/ML IVP ONE (17:00)
[2019-03-24] MEDS ORDERED: CALCIUM GLUCONATE 100 MG/ML 10 ML IVP ONE (17:00)
[2019-03-24] MEDS ORDERED: DEXTROSE 50%-WATER 25 GM/50 ML SYRINGE IVP ONE (17:00)
[2019-03-24] MEDS ORDERED: ACETAMINOPHEN 325 MG TABLET PO PRN ×2 (18:30→19:30)
[2019-03-24] MEDS ORDERED: 0.9% SODIUM CHLORIDE 10 ML SYRINGE IVP PRN (18:30)
[2019-03-24] MEDS ORDERED: ONDANSETRON HCL 4 MG/2 ML VIAL IVP PRN (19:30)
[2019-03-24] MEDS ORDERED: MAGNESIUM HYDROXIDE SUSPENSION 30 ML UDCUP PO PRN (19:30)
[2019-03-24] MEDS ORDERED: ALBUTEROL SULFATE 2.5 MG/0.5 ML NEB SOLUTION NEB PRN (19:30)
[2019-03-24] MEDS ORDERED: MORPHINE SULFATE 2 MG/ML SYRINGE IVP PRN (19:30)
[2019-03-24] MEDS ORDERED: CloNIDine HCL 0.1 MG TABLET PO PRN (19:30)
[2019-03-24] MEDS ORDERED: IPRATROPIUM BROMIDE 0.5 MG/2.5 ML NEB SOLUTION NEB PRN (19:30)
[2019-03-24] MEDS ORDERED: ALPRAZolam 0.5 MG TABLET PO PRN (19:30)
[2019-03-24] MEDS ORDERED: ZOLPIDEM TARTRATE 5 MG TABLET PO PRN (19:30)
[2019-03-24] MEDS ORDERED: BISACODYL 10 MG RECTAL RECTAL SUPPOSITORY PR PRN (19:30)
[2019-03-24] MEDS ORDERED: DEXTROSE 50%-WATER 25 GM/50 ML SYRINGE IVP PRN (19:30)
[2019-03-24] MEDS ORDERED: LIDOCAINE/PF 1% 2 ML VIAL ID PRN (20:00)
[2019-03-24] MEDS ORDERED: CloNIDine HCL 0.1 MG TABLET PO ONE (21:00)
[2019-03-24 22:30] VITALS: BP 206/108
[2019-03-24] MEDS ORDERED: CLON.2P TD (22:38)
[2019-03-24] MEDS ORDERED: LABE100T5 PO (22:40)
[2019-03-24] MEDS ORDERED: LOSA50TA2 PO (22:43)
[2019-03-24] MEDS ORDERED: FLUO-125 PO (22:43)
[2019-03-24] MEDS ORDERED: BRIM2.5D OU (22:44)
[2019-03-24] MEDS ORDERED: AmLODIPine BESYLATE 10 MG TABLET PO ONE (22:45)
[2019-03-24] MEDS ORDERED: HydrALAZINE HCL 20 MG/ML VIAL IVP SCH (22:50)
[2019-03-24] MEDS ORDERED: HydrALAZINE HCL 20 MG/ML VIAL IVP PRN (22:55)
[2019-03-24] MEDS: HEPARIN SODIUM,PORCINE 5,000 UNITS/ML VIAL SQ SCH (22:55)
[2019-03-25 00:16] VITALS: BP 162/94
[2019-03-25 01:29] LABS: GLUCOMETER DEV NAME(LOC) 5S.2; GLUCOSE,POINT OF CARE 89 MG/DL (70-110)
[2019-03-25] MEDS ORDERED: SEVEC800 PO (01:34)
[2019-03-25 04:28] VITALS: BP_SYST 149; BP_SYST 157; BP_DIAS 82; BP_DIAS 89
[2019-03-25] MEDS: OxyCODONE HCL/ACETAMINOPHEN 5-325 MG TABLET PO PRN ×3 (04:42→17:05)
[2019-03-25] MEDS: INSULIN LISPRO 100 UNITS/ML SQ PRN ×2 (05:42→20:33)
[2019-03-25 05:57] LABS: BASOPHILS % (AUTO) 1.1 % (0.0-2.0); EOSINOPHILS % (AUTO) 1.9 % (1.0-6.0); HEMATOCRIT 36.9 % (36-46); HEMOGLOBIN 11.9 g/dL (12.0-16.0); LYMPHOCYTES # (AUTO) 1.2 K/uL (1.0-4.8); LYMPHOCYTES % (AUTO) 12.8 % (22.0-44.0); MEAN CORPUSCULAR HEMOGLOBIN 30.1 pg (26.0-34.0); MEAN CORPUSCULAR HGB CONC 32.2 G/dL (31.0-37.0); MEAN CORPUSCULAR VOLUME 93 fL (80-100); MONOCYTES # (AUTO) 0.7 K/uL (0.1-1.0); MONOCYTES % (AUTO) 7.3 % (2.0-9.0); NEUTROPHILS % (AUTO) 76.9 % (40.0-70.0); PLATELET COUNT (AUTO) 192 K/uL (150-450); RED BLOOD CELL COUNT(AUTO) 3.95 MIL/uL (4.00-5.20); RED CELL DISTRIBUTION WIDTH 18.7 % (11.5-14.5)
[2019-03-25 07:07] LABS: ALBUMIN 3.2 g/dL (3.4-5.0); BILIRUBIN,TOTAL 0.8 mg/dL (0.1-1.0); CALCIUM, TOTAL 8.7 mg/dL (8.8-10.5); CREATININE 6.7 mg/dL (0.60-1.30); PHOSPHORUS 5.5 mg/dL (2.5-4.9); POTASSIUM 4.6 mmol/L (3.5-5.1); TOTAL PROTEIN, SERUM 6.4 g/dL (6.4-8.2)
[2019-03-25 07:53] VITALS: BP 133/83
[2019-03-25] MEDS ORDERED: CALCIUM ACETATE 667 MG CAPSULE PO SCH (08:00)
[2019-03-25] MEDS ORDERED: SEVELAMER CARBONATE 800 MG TABLET PO SCH (08:00)
[2019-03-25 08:24] LABS: GLUCOMETER DEV NAME(LOC) 5S.2; GLUCOSE,POINT OF CARE 172 MG/DL (70-110)
[2019-03-25] MEDS: SEVELAMER CARBONATE 800 MG TABLET PO SCH ×3 (08:28→18:00)
[2019-03-25] MEDS: FAMOTIDINE 20 MG TABLET PO SCH (08:29)
[2019-03-25] MEDS: ARIPiprazole 10 MG TABLET PO SCH (08:29)
[2019-03-25] MEDS: FLUoxetine HCL 20 MG CAPSULE PO SCH (08:29)
[2019-03-25] MEDS: HEPARIN SODIUM,PORCINE 5,000 UNITS/ML VIAL SQ SCH ×2 (08:30→20:15)
[2019-03-25] MEDS: LABETALOL HCL 100 MG TABLET PO SCH ×2 (09:00→20:15)
[2019-03-25] MEDS ORDERED: [UNRECOGNIZED DRUG - OTHER] OU SCH (09:00)
[2019-03-25] MEDS ORDERED: CloNIDine 0.2 MG/24 HOUR PATCH TD SCH (09:00)
[2019-03-25 11:10] VITALS: BP 170/92
[2019-03-25] MEDS: AmLODIPine BESYLATE 10 MG TABLET PO SCH (11:54)
[2019-03-25] MEDS: LOSARTAN POTASSIUM 50 MG TABLET PO SCH (11:54)
[2019-03-25 15:17] VITALS: BP 173/91
[2019-03-25 20:22] VITALS: BP 174/84
[2019-03-25 21:45] LABS: GLUCOMETER DEV NAME(LOC) 5S.1; GLUCOSE,POINT OF CARE 145 MG/DL (70-110)
[2019-03-25 21:50] LABS: GLUCOMETER DEV NAME(LOC) 5S.1; GLUCOSE,POINT OF CARE 227 MG/DL (70-110)
[2019-03-26 00:16] VITALS: BP 163/84
[2019-03-26] MEDS: OxyCODONE HCL/ACETAMINOPHEN 5-325 MG TABLET PO PRN ×3 (00:27→17:35)
[2019-03-26 04:02] VITALS: BP 161/83
[2019-03-26] MEDS: INSULIN LISPRO 100 UNITS/ML SQ PRN ×3 (06:01→21:47)
[2019-03-26] MEDS: BRIMONIDINE TARTRATE OU SCH (08:07)
[2019-03-26] MEDS: SEVELAMER CARBONATE 800 MG TABLET PO SCH ×3 (08:07→17:35)
[2019-03-26 08:38] VITALS: BP 161/86
[2019-03-26 08:41] LABS: GLUCOMETER DEV NAME(LOC) 5S.1; GLUCOSE,POINT OF CARE 194 MG/DL (70-110)
[2019-03-26] MEDS: LABETALOL HCL 100 MG TABLET PO SCH ×2 (08:58→21:46)
[2019-03-26] MEDS: AmLODIPine BESYLATE 10 MG TABLET PO SCH (08:58)
[2019-03-26] MEDS: LOSARTAN POTASSIUM 50 MG TABLET PO SCH (08:58)
[2019-03-26] MEDS: FLUoxetine HCL 20 MG CAPSULE PO SCH (08:58)
[2019-03-26] MEDS: FAMOTIDINE 20 MG TABLET PO SCH (08:58)
[2019-03-26] MEDS: ARIPiprazole 10 MG TABLET PO SCH (08:58)
[2019-03-26] MEDS: HEPARIN SODIUM,PORCINE 5,000 UNITS/ML VIAL SQ SCH ×2 (08:59→21:46)
[2019-03-26] MEDS ORDERED: CloNIDine 0.2 MG/24 HOUR PATCH TD SCH (09:00)
[2019-03-26 12:24] VITALS: BP 152/82
[2019-03-26 16:10] VITALS: BP 138/77
[2019-03-26 16:25] LABS: GLUCOMETER DEV NAME(LOC) 5S.2; GLUCOSE,POINT OF CARE 119 MG/DL (70-110)
[2019-03-26 16:26] LABS: GLUCOMETER DEV NAME(LOC) 5S.2; GLUCOSE,POINT OF CARE 190 MG/DL (70-110)
[2019-03-26 19:28] VITALS: BP 153/86
[2019-03-27 05:26] VITALS: BP 175/28
[2019-03-27 06:05] LABS: GLUCOMETER DEV NAME(LOC) 5S.2; GLUCOSE,POINT OF CARE 237 MG/DL (70-110)
[2019-03-27 06:25] LABS: GLUCOMETER DEV NAME(LOC) 5S.1; GLUCOSE,POINT OF CARE 153 MG/DL (70-110)
[2019-03-27 06:50] LABS: BASOPHILS % (AUTO) 1.3 % (0.0-2.0); EOSINOPHILS % (AUTO) 4.1 % (1.0-6.0); HEMATOCRIT 38.9 % (36-46); HEMOGLOBIN 12.4 g/dL (12.0-16.0); LYMPHOCYTES # (AUTO) 1.2 K/uL (1.0-4.8); LYMPHOCYTES % (AUTO) 19.1 % (22.0-44.0); MEAN CORPUSCULAR HEMOGLOBIN 29.9 pg (26.0-34.0); MEAN CORPUSCULAR HGB CONC 31.8 G/dL (31.0-37.0); MEAN CORPUSCULAR VOLUME 94 fL (80-100); MONOCYTES # (AUTO) 0.3 K/uL (0.1-1.0); MONOCYTES % (AUTO) 5.4 % (2.0-9.0); NEUTROPHILS # (AUTO) 4.4 K/uL (1.8-7.7); NEUTROPHILS % (AUTO) 70.1 % (40.0-70.0); PLATELET COUNT (AUTO) 204 K/uL (150-450); RED BLOOD CELL COUNT(AUTO) 4.15 MIL/uL (4.00-5.20); RED CELL DISTRIBUTION WIDTH 18.4 % (11.5-14.5)
[2019-03-27 07:05] LABS: CALCIUM, TOTAL 8.7 mg/dL (8.8-10.5); CREATININE 7.58 mg/dL (0.60-1.30); MAGNESIUM 1.9 mg/dL (1.80-2.40); PHOSPHORUS 4.8 mg/dL (2.5-4.9); POTASSIUM 4.3 mmol/L (3.5-5.1)
[2019-03-27 07:36] VITALS: BP 169/91
[2019-03-27] MEDS: BRIMONIDINE TARTRATE OU SCH (07:36)
[2019-03-27] MEDS: SEVELAMER CARBONATE 800 MG TABLET PO SCH ×3 (07:36→17:40)
[2019-03-27] MEDS: OxyCODONE HCL/ACETAMINOPHEN 5-325 MG TABLET PO PRN (07:36)
[2019-03-27] MEDS ORDERED: SODIUM CHLORIDE 0.9% 2,000 ML IV ONE (08:45)
[2019-03-27 12:04] LABS: GLUCOMETER DEV NAME(LOC) 5S.2; GLUCOSE,POINT OF CARE 145 MG/DL (70-110)
[2019-03-27 12:04] LABS: GLUCOMETER DEV NAME(LOC) 5S.2; GLUCOSE,POINT OF CARE 138 MG/DL (70-110)
[2019-03-27] MEDS: AmLODIPine BESYLATE 10 MG TABLET PO SCH (12:39)
[2019-03-27] MEDS: LABETALOL HCL 100 MG TABLET PO SCH ×2 (12:39→20:56)
[2019-03-27] MEDS: FLUoxetine HCL 20 MG CAPSULE PO SCH (12:39)
[2019-03-27] MEDS: ARIPiprazole 10 MG TABLET PO SCH (12:39)
[2019-03-27] MEDS: LOSARTAN POTASSIUM 50 MG TABLET PO SCH (12:39)
[2019-03-27] MEDS: FAMOTIDINE 20 MG TABLET PO SCH (12:39)
[2019-03-27] MEDS: HEPARIN SODIUM,PORCINE 5,000 UNITS/ML VIAL SQ SCH ×2 (12:40→21:00)
[2019-03-27 15:55] VITALS: BP 170/83
[2019-03-27] MEDS: INSULIN LISPRO 100 UNITS/ML SQ PRN (17:43)
[2019-03-27 20:07] VITALS: BP 163/88
[2019-03-27 21:05] LABS: GLUCOMETER DEV NAME(LOC) 5S.1; GLUCOSE,POINT OF CARE 169 MG/DL (70-110)
[2019-03-31] MEDS ORDERED: DIVA-78 PO (12:08)
[2019-03-31] MEDS ORDERED: CITA-106 PO (12:08)
[2019-03-31] MEDS ORDERED: HYDR-2924 PO (12:12)
[2019-03-31] MEDS ORDERED: FOLI0.8T2 PO (12:20)
== END 2019-03-27 22:07 | DRG 425 ==
LOC: EMS 14:24 → 5S 19:01
PROVIDERS: ADMIT Internal Medicine; ATTEND Internal Medicine
PROC: 5A1D70Z Performance of Urinary Filtration, Intermittent, Less than 6 Hours Per Day (ICD-10-PCS; principal; 2019-03-24)
PROC: 5A1D70Z Performance of Urinary Filtration, Intermittent, Less than 6 Hours Per Day (ICD-10-PCS; 2019-03-25)
PROC: 5A1D70Z Performance of Urinary Filtration, Intermittent, Less than 6 Hours Per Day (ICD-10-PCS; 2019-03-27)
DX: E87.5 Hyperkalemia (principal); E11.21 Type 2 diabetes mellitus with diabetic nephropathy; E11.40 Type 2 diabetes mellitus with diabetic neuropathy, unspecified; I12.0 Hypertensive chronic kidney disease with stage 5 chronic kidney disease or end stage renal disease; E11.22 Type 2 diabetes mellitus with diabetic chronic kidney disease; E11.65 Type 2 diabetes mellitus with hyperglycemia; N18.6 End stage renal disease; E87.1 Hypo-osmolality and hyponatremia; K21.9 Gastro-esophageal reflux disease without esophagitis; E78.5 Hyperlipidemia, unspecified; F12.90 Cannabis use, unspecified, uncomplicated; D63.1 Anemia in chronic kidney disease; E11.319 Type 2 diabetes mellitus with unspecified diabetic retinopathy without macular edema; E78.00 Pure hypercholesterolemia, unspecified; E83.39 Other disorders of phosphorus metabolism; F20.9 Schizophrenia, unspecified; F31.9 Bipolar disorder, unspecified; F41.9 Anxiety disorder, unspecified; R45.851 Suicidal ideations; Z90.49 Acquired absence of other specified parts of digestive tract; Z99.2 Dependence on renal dialysis; Z98.891 History of uterine scar from previous surgery; Z91.19 Patient's noncompliance with other medical treatment and regimen
CPT/HCPCS: 83735; 84100; 87081; 87340; 93005; 96372; 96374; 96375; G0378; G0480; J0360; J0610; J1644; J1815; J2060; J2405; J3490; J7030

== ENCOUNTER 2019-09-26 13:45 | Inpatient (IN) | payer MEDICAID, OTHER ==
[~2019-09-26] VITALS: Ht 160 cm; Wt 63.5 kg
[~2019-09-26 13:45] MED LIST changes: -ALBU8HFA IH; -ALPR0.5T8 PO; -AMLO-512 PO; +AMLO10TA7 PO; -ARIP10TA8 PO; +CITA-106 PO; +CLON.2P TD; +DIVA-78 PO; +FOLI0.8T2 PO; +HYDR-2924 PO; -INSNOV SQ; -IPRNEB IH; +LABE100T5 PO; -LIDOCAINE/PF 1% 2 ML VIAL IM ONE; +LOSA50TA2 PO; -PANT40TA25 PO; +SEVE800T17 PO; -SEVEC800 PO
[2019-09-26] MEDS ORDERED: INSLAN SQ (14:04)
[2019-09-26] MEDS ORDERED: INSULIN SQ (14:04)
[2019-09-26 14:12] LABS: GLUCOSE,POINT OF CARE 235 MG/DL (70-110)
[2019-09-26] MEDS ORDERED: ONDANSETRON HCL 4 MG/2 ML VIAL IVP ONE (15:00)
[2019-09-26] MEDS ORDERED: NITROGLYCERIN 2% (1 GM=INCH) PACKET TP ONE (15:00)
[2019-09-26] MEDS ORDERED: MORPHINE SULFATE 4 MG/ML SYRINGE IVP ONE (15:00)
[2019-09-26 15:37] LABS: BASOPHILS % (AUTO) 0.6 % (0.0-2.0); EOSINOPHILS % (AUTO) 0.9 % (1.0-6.0); HEMATOCRIT 34.5 % (36-46); LYMPHOCYTES # (AUTO) 1.1 K/uL (1.0-4.8); LYMPHOCYTES % (AUTO) 8.8 % (22.0-44.0); MEAN CORPUSCULAR HEMOGLOBIN 29.1 pg (26.0-34.0); MEAN CORPUSCULAR HGB CONC 31.9 G/dL (31.0-37.0); MEAN CORPUSCULAR VOLUME 91 fL (80-100); MONOCYTES # (AUTO) 0.8 K/uL (0.1-1.0); NEUTROPHILS # (AUTO) 9.8 K/uL (1.8-7.7); NEUTROPHILS % (AUTO) 82.7 % (40.0-70.0); PLATELET COUNT (AUTO) 157 K/uL (150-450); RED BLOOD CELL COUNT(AUTO) 3.78 MIL/uL (4.00-5.20); RED CELL DISTRIBUTION WIDTH 20.7 % (11.5-14.5)
[2019-09-26 15:59] LABS: ALANINE AMINOTRANSFERASE 57 U/L (12-78); ALBUMIN 3.6 g/dL (3.4-5.0); ALKALINE PHOSPHATASE 149 U/L (46-116); ANION GAP 14 mmol/L (8-16); ASPARTATE AMINOTRANSFERASE 67 U/L (15-37); BILIRUBIN,TOTAL 1.5 mg/dL (0.1-1.0); CALCIUM, TOTAL 9.5 mg/dL (8.8-10.5); CARBON DIOXIDE 25 mmol/L (22-29); CHLORIDE 92 mmol/L (98-107); CREATININE 8.47 mg/dL (0.60-1.30); GLOMERULAR FILTR. RATE CALC 5 mL/min (>60); GLUCOSE,RANDOM 232 mg/dL (70-110); SODIUM SERUM 131 mmol/L (136-145); TOTAL PROTEIN, SERUM 7.6 g/dL (6.4-8.2); UREA NITROGEN, BLOOD 67 mg/dL (7-18)
[2019-09-26 16:02] LABS: POTASSIUM 6.1 mmol/L (3.5-5.1)
[2019-09-26 16:13] LABS: VALPROIC ACID 4 mcg/mL (50-100)
[2019-09-26] MEDS ORDERED: DEXTROSE 50%-WATER 25 GM/50 ML SYRINGE IVP ONE (16:15)
[2019-09-26] MEDS ORDERED: SODIUM BICARBONATE [ADULT] 8.4% 50 MEQ/50 ML SYRINGE IVP ONE (16:15)
[2019-09-26] MEDS ORDERED: ALBUTEROL SULFATE 2.5 MG/0.5 ML NEB SOLUTION NEB ONE (16:15)
[2019-09-26] MEDS ORDERED: INSULIN REGULAR, HUMAN 100 UNITS/ML IVP ONE (16:15)
[2019-09-26 16:28] LABS: LIPASE 362 U/L (73-393)
[2019-09-26] MEDS ORDERED: ACETAMINOPHEN 325 MG TABLET PO PRN (17:30)
[2019-09-26] MEDS ORDERED: SEVELAMER CARBONATE 800 MG TABLET PO SCH (17:30)
[2019-09-26] MEDS ORDERED: 0.9% SODIUM CHLORIDE 10 ML SYRINGE IVP PRN (17:30)
[2019-09-26] MEDS ORDERED: MORPHINE SULFATE 2 MG/ML SYRINGE IVP ONE (19:00)
[2019-09-26 20:26] VITALS: BP 136/99
[2019-09-26] MEDS ORDERED: SODIUM CHLORIDE 0.9% 1,000 ML IV ONE ×2 (23:02)
[2019-09-26 23:11] LABS: GLUCOMETER DEV NAME(LOC) 5N.1; GLUCOSE,POINT OF CARE 111 MG/DL (70-110)
[2019-09-27] VITALS (7 sets, daily range): BP systolic 148–174; BP diastolic 89–96
[2019-09-27] MEDS ORDERED: HYDROCODONE/ACETAMINOPHEN 5-325 MG TABLET PO PRN (01:45)
[2019-09-27] MEDS ORDERED: MAGNESIUM HYDROXIDE SUSPENSION 30 ML UDCUP PO PRN (01:45)
[2019-09-27] MEDS ORDERED: DEXTROSE 50%-WATER 25 GM/50 ML SYRINGE IVP PRN (01:45)
[2019-09-27] MEDS ORDERED: ALBUTEROL SULFATE 2.5 MG/0.5 ML NEB SOLUTION NEB PRN (01:45)
[2019-09-27] MEDS ORDERED: ZOLPIDEM TARTRATE 5 MG TABLET PO PRN (01:45)
[2019-09-27] MEDS ORDERED: ONDANSETRON HCL 4 MG/2 ML VIAL IVP PRN (01:45)
[2019-09-27] MEDS ORDERED: ACETAMINOPHEN 325 MG TABLET PO PRN (01:45)
[2019-09-27] MEDS ORDERED: BISACODYL 10 MG RECTAL RECTAL SUPPOSITORY PR PRN (01:45)
[2019-09-27] MEDS ORDERED: IPRATROPIUM BROMIDE 0.5 MG/2.5 ML NEB SOLUTION NEB PRN (01:45)
[2019-09-27 07:02] LABS: BASOPHILS % (AUTO) 0.8 % (0.0-2.0); EOSINOPHILS % (AUTO) 2.2 % (1.0-6.0); HEMATOCRIT 33.1 % (36-46); HEMOGLOBIN 10.9 g/dL (12.0-16.0); LYMPHOCYTES # (AUTO) 0.9 K/uL (1.0-4.8); MEAN CORPUSCULAR HEMOGLOBIN 29.9 pg (26.0-34.0); MEAN CORPUSCULAR HGB CONC 32.8 G/dL (31.0-37.0); MEAN CORPUSCULAR VOLUME 91 fL (80-100); MONOCYTES # (AUTO) 0.7 K/uL (0.1-1.0); MONOCYTES % (AUTO) 7.9 % (2.0-9.0); NEUTROPHILS # (AUTO) 7.3 K/uL (1.8-7.7); NEUTROPHILS % (AUTO) 79.1 % (40.0-70.0); PLATELET COUNT (AUTO) 135 K/uL (150-450); RED BLOOD CELL COUNT(AUTO) 3.63 MIL/uL (4.00-5.20); RED CELL DISTRIBUTION WIDTH 20.3 % (11.5-14.5)
[2019-09-27 07:24] LABS: ALBUMIN 3.2 g/dL (3.4-5.0); BILIRUBIN,TOTAL 1.3 mg/dL (0.1-1.0); CREATININE 5.51 mg/dL (0.60-1.30); TOTAL PROTEIN, SERUM 7.1 g/dL (6.4-8.2)
[2019-09-27 07:38] LABS: CALCIUM, TOTAL 5.9 mg/dL (8.8-10.5)
[2019-09-27] MEDS ORDERED: CALCIUM GLUCONATE 1,000 MG in DEXTROSE 5%-WATER 50 ML IV ONE (08:00)
[2019-09-27] MEDS: SEVELAMER CARBONATE 800 MG TABLET PO SCH ×3 (08:06→17:13)
[2019-09-27] MEDS: DOCUSATE SODIUM 100 MG CAPSULE PO SCH ×2 (08:08→09:06)
[2019-09-27] MEDS: CALCIUM ACETATE 667 MG CAPSULE PO SCH ×2 (08:08→11:58)
[2019-09-27] MEDS: HEPARIN SODIUM,PORCINE 5,000 UNITS/ML VIAL SQ SCH ×3 (08:08→23:22)
[2019-09-27] MEDS: LOSARTAN POTASSIUM 50 MG TABLET PO SCH ×2 (08:08→09:05)
[2019-09-27] MEDS: VITAMIN B COMP/VIT C/FOLIC ACID CAPSULE PO SCH ×2 (08:08→09:05)
[2019-09-27] MEDS: AmLODIPine BESYLATE 10 MG TABLET PO SCH ×2 (08:09→09:06)
[2019-09-27] MEDS ORDERED: SODIUM CHLORIDE 0.9% 250 ML IV ONE (08:53)
[2019-09-27] MEDS ORDERED: CloNIDine 0.2 MG/24 HOUR PATCH TD SCH (09:00)
[2019-09-27] MEDS ORDERED: CITALOPRAM HYDROBROMIDE 20 MG TABLET PO SCH (09:00)
[2019-09-27] MEDS: HydrALAZINE HCL 50 MG TABLET PO SCH ×3 (09:05→20:16)
[2019-09-27] MEDS: LABETALOL HCL 100 MG TABLET PO SCH ×2 (09:06→20:15)
[2019-09-27] MEDS: DIVALPROEX SODIUM 500 MG DR TABLET PO SCH ×2 (09:06→20:15)
[2019-09-27] MEDS: INSULIN LISPRO 100 UNITS/ML SQ PRN ×2 (12:02→20:49)
[2019-09-27] MEDS: MORPHINE SULFATE 2 MG/ML SYRINGE IVP PRN ×2 (13:11→20:53)
[2019-09-27] MEDS ORDERED: CALCIUM GLUCONATE 100 MG/ML 10 ML IVP ONE (14:45)
[2019-09-27] MEDS: ARIPiprazole 5 MG TABLET PO SCH (17:13)
[2019-09-28] VITALS (8 sets, daily range): BP systolic 132–192; BP diastolic 72–107
[2019-09-28 00:18] LABS: GLUCOMETER DEV NAME(LOC) 5N.1; GLUCOSE,POINT OF CARE 102 MG/DL (70-110)
[2019-09-28 00:19] LABS: GLUCOMETER DEV NAME(LOC) 5N.1; GLUCOSE,POINT OF CARE 100 MG/DL (70-110)
[2019-09-28 00:19] LABS: GLUCOMETER DEV NAME(LOC) 5N.1; GLUCOSE,POINT OF CARE 190 MG/DL (70-110)
[2019-09-28 00:19] LABS: GLUCOMETER DEV NAME(LOC) 5N.1; GLUCOSE,POINT OF CARE 214 MG/DL (70-110)
[2019-09-28] MEDS: MORPHINE SULFATE 2 MG/ML SYRINGE IVP PRN ×2 (06:42→21:52)
[2019-09-28] MEDS: SEVELAMER CARBONATE 800 MG TABLET PO SCH ×3 (07:55→20:06)
[2019-09-28 08:37] LABS: CALCIUM, TOTAL 7.7 mg/dL (8.8-10.5); CREATININE 6.71 mg/dL (0.60-1.30)
[2019-09-28] MEDS: VITAMIN B COMP/VIT C/FOLIC ACID CAPSULE PO SCH (10:24)
[2019-09-28] MEDS: DOCUSATE SODIUM 100 MG CAPSULE PO SCH ×2 (10:24→20:07)
[2019-09-28] MEDS: HydrALAZINE HCL 50 MG TABLET PO SCH ×3 (10:25→21:00)
[2019-09-28] MEDS: HEPARIN SODIUM,PORCINE 5,000 UNITS/ML VIAL SQ SCH ×2 (10:26→20:07)
[2019-09-28] MEDS: LABETALOL HCL 100 MG TABLET PO SCH ×2 (10:26→20:07)
[2019-09-28] MEDS: AmLODIPine BESYLATE 10 MG TABLET PO SCH (10:26)
[2019-09-28] MEDS: LOSARTAN POTASSIUM 50 MG TABLET PO SCH (10:26)
[2019-09-28] MEDS ORDERED: CITA20TA17 PO (10:41)
[2019-09-28] MEDS ORDERED: ARIP20TA PO (10:41)
[2019-09-28] MEDS: INSULIN LISPRO 100 UNITS/ML SQ PRN ×3 (12:06→21:50)
[2019-09-28 13:07] LABS: GLUCOMETER DEV NAME(LOC) 5N.2; GLUCOSE,POINT OF CARE 234 MG/DL (70-110)
[2019-09-28 13:08] LABS: GLUCOMETER DEV NAME(LOC) 5N.1; GLUCOSE,POINT OF CARE 111 MG/DL (70-110)
[2019-09-28] MEDS ORDERED: SODIUM CHLORIDE 0.9% 1,000 ML IV ONE ×2 (16:11→16:12)
[2019-09-28] MEDS ORDERED: LIDOCAINE/PF 1% 2 ML VIAL IM ONE (17:22)
[2019-09-28] MEDS: ARIPiprazole 5 MG TABLET PO SCH (20:06)
[2019-09-28] MEDS: DIVALPROEX SODIUM 500 MG DR TABLET PO SCH ×2 (20:07→21:00)
[2019-09-28] MEDS: CITALOPRAM HYDROBROMIDE 10 MG TABLET PO SCH (20:07)
[2019-09-29 04:00] VITALS: BP 154/86
[2019-09-29 06:47] LABS: EOSINOPHILS % (AUTO) 2.7 % (1.0-6.0); HEMATOCRIT 34.6 % (36-46); HEMOGLOBIN 11.3 g/dL (12.0-16.0); LYMPHOCYTES % (AUTO) 12.2 % (22.0-44.0); MEAN CORPUSCULAR HEMOGLOBIN 29.8 pg (26.0-34.0); MEAN CORPUSCULAR HGB CONC 32.6 G/dL (31.0-37.0); MEAN CORPUSCULAR VOLUME 92 fL (80-100); MONOCYTES # (AUTO) 0.6 K/uL (0.1-1.0); MONOCYTES % (AUTO) 7.8 % (2.0-9.0); NEUTROPHILS % (AUTO) 76.3 % (40.0-70.0); PLATELET COUNT (AUTO) 150 K/uL (150-450); RED BLOOD CELL COUNT(AUTO) 3.78 MIL/uL (4.00-5.20); RED CELL DISTRIBUTION WIDTH 20.5 % (11.5-14.5)
[2019-09-29] MEDS: INSULIN LISPRO 100 UNITS/ML SQ PRN ×2 (06:54→11:40)
[2019-09-29 07:04] LABS: CALCIUM, TOTAL 9.1 mg/dL (8.8-10.5); CREATININE 4.3 mg/dL (0.60-1.30); MAGNESIUM 2.2 mg/dL (1.80-2.40); PHOSPHORUS 4.2 mg/dL (2.5-4.9); POTASSIUM 4.8 mmol/L (3.5-5.1)
[2019-09-29] MEDS: DIVALPROEX SODIUM 500 MG DR TABLET PO SCH (08:13)
[2019-09-29] MEDS: DOCUSATE SODIUM 100 MG CAPSULE PO SCH (08:13)
[2019-09-29] MEDS: CITALOPRAM HYDROBROMIDE 10 MG TABLET PO SCH (08:14)
[2019-09-29] MEDS: SEVELAMER CARBONATE 800 MG TABLET PO SCH ×2 (08:14→12:15)
[2019-09-29] MEDS: LABETALOL HCL 100 MG TABLET PO SCH (08:15)
[2019-09-29] MEDS: ARIPiprazole 5 MG TABLET PO SCH (08:15)
[2019-09-29] MEDS: LOSARTAN POTASSIUM 50 MG TABLET PO SCH (08:16)
[2019-09-29] MEDS: HydrALAZINE HCL 50 MG TABLET PO SCH ×2 (08:16→16:56)
[2019-09-29] MEDS: AmLODIPine BESYLATE 10 MG TABLET PO SCH (08:16)
[2019-09-29] MEDS: HEPARIN SODIUM,PORCINE 5,000 UNITS/ML VIAL SQ SCH ×2 (08:16)
[2019-09-29] MEDS: VITAMIN B COMP/VIT C/FOLIC ACID CAPSULE PO SCH (08:17)
[2019-09-29 08:50] VITALS: BP 179/100
[2019-09-29 11:40] VITALS: BP 145/78
[2019-09-29] MEDS ORDERED: GLIP5TAB11 PO (12:12)
[2019-09-29 16:03] VITALS: BP 152/89
[2019-09-30 00:38] LABS: GLUCOMETER DEV NAME(LOC) 5N.1; GLUCOSE,POINT OF CARE 164 MG/DL (70-110)
[2019-09-30 00:38] LABS: GLUCOMETER DEV NAME(LOC) 5N.2; GLUCOSE,POINT OF CARE 239 MG/DL (70-110)
[2019-09-30 00:38] LABS: GLUCOMETER DEV NAME(LOC) 5N.2; GLUCOSE,POINT OF CARE 152 MG/DL (70-110)
[2019-09-30 00:39] LABS: GLUCOMETER DEV NAME(LOC) 5N.1; GLUCOSE,POINT OF CARE 222 MG/DL (70-110)
[2019-09-30 00:39] LABS: GLUCOMETER DEV NAME(LOC) 5N.2; GLUCOSE,POINT OF CARE 199 MG/DL (70-110)
[2019-09-30] MEDS ORDERED: EPOETIN ALFA 10,000 UNITS/ML 2 ML VIAL SQ SCH (09:00)
== END 2019-09-29 17:35 | disposition home or self-care (01) | DRG 425 ==
LOC: EMS 13:50 → 5S 18:24
PROVIDERS: ADMIT Hospitalist; ATTEND Hospitalist
PROC: 5A1D70Z Performance of Urinary Filtration, Intermittent, Less than 6 Hours Per Day (ICD-10-PCS; principal; 2019-09-26)
PROC: 5A1D70Z Performance of Urinary Filtration, Intermittent, Less than 6 Hours Per Day (ICD-10-PCS; 2019-09-28)
DX: E87.5 Hyperkalemia (principal); E11.22 Type 2 diabetes mellitus with diabetic chronic kidney disease; E11.42 Type 2 diabetes mellitus with diabetic polyneuropathy; I12.0 Hypertensive chronic kidney disease with stage 5 chronic kidney disease or end stage renal disease; N18.6 End stage renal disease; F31.9 Bipolar disorder, unspecified; D63.1 Anemia in chronic kidney disease; E11.319 Type 2 diabetes mellitus with unspecified diabetic retinopathy without macular edema; E78.00 Pure hypercholesterolemia, unspecified; E78.5 Hyperlipidemia, unspecified; E83.51 Hypocalcemia; E87.1 Hypo-osmolality and hyponatremia; F20.9 Schizophrenia, unspecified; F41.9 Anxiety disorder, unspecified; R45.851 Suicidal ideations; Z82.49 Family history of ischemic heart disease and other diseases of the circulatory system; Z83.3 Family history of diabetes mellitus; Z90.49 Acquired absence of other specified parts of digestive tract; Z99.2 Dependence on renal dialysis; Z79.899 Other long term (current) drug therapy
CPT/HCPCS: 83735; 84100; 87081; 87340; 93005; 94640; 96374; 96375; 99291; G0378; G0480; J0610; J0885; J1644; J1815; J2270; J2405; J3490; J7030; J7050; J7060

== ENCOUNTER 2019-11-07 14:12 | Inpatient (IN) | payer OTHER ==
[~2019-11-07] VITALS: Ht 160 cm; Wt 62.7 kg
[~2019-11-07 14:12] MED LIST changes: -CITA-106 PO; +GLIP5TAB11 PO; +INSLAN SQ; +INSULIN SQ
[2019-11-07 14:33] LABS: GLUCOSE,POINT OF CARE 234 MG/DL (70-110)
[2019-11-07 15:15] LABS: EOSINOPHILS % (AUTO) 0.9 % (1.0-6.0); HEMATOCRIT 31.6 % (36-46); HEMOGLOBIN 10.1 g/dL (12.0-16.0); LYMPHOCYTES # (AUTO) 0.7 K/uL (1.0-4.8); LYMPHOCYTES % (AUTO) 4.2 % (22.0-44.0); MEAN CORPUSCULAR HEMOGLOBIN 28.7 pg (26.0-34.0); MEAN CORPUSCULAR HGB CONC 31.8 G/dL (31.0-37.0); MEAN CORPUSCULAR VOLUME 90 fL (80-100); MONOCYTES # (AUTO) 0.9 K/uL (0.1-1.0); MONOCYTES % (AUTO) 4.8 % (2.0-9.0); NEUTROPHILS # (AUTO) 15.7 K/uL (1.8-7.7); PLATELET COUNT (AUTO) 326 K/uL (150-450); RED CELL DISTRIBUTION WIDTH 17.7 % (11.5-14.5)
[2019-11-07 15:21] LABS: NEUTROPHILS % (AUTO) 89.1 % (40.0-70.0)
[2019-11-07 15:30] LABS: INR 1.1 (0.9-1.1); PROTHROMBIN TIME 10.9 SEC (9.4-11.6)
[2019-11-07 15:35] LABS: ANION GAP 9 mmol/L (8-16); CALCIUM, TOTAL 9.2 mg/dL (8.8-10.5); CARBON DIOXIDE 30 mmol/L (22-29); CHLORIDE 95 mmol/L (98-107); CREATININE 5.27 mg/dL (0.60-1.30); GLOMERULAR FILTR. RATE CALC 9 mL/min (>60); GLUCOSE,RANDOM 190 mg/dL (70-110); POTASSIUM 5.3 mmol/L (3.5-5.1); SODIUM SERUM 134 mmol/L (136-145); UREA NITROGEN, BLOOD 40 mg/dL (7-18)
[2019-11-07 16:01] LABS: ALANINE AMINOTRANSFERASE 27 U/L (12-78); ALKALINE PHOSPHATASE 302 U/L (46-116); ASPARTATE AMINOTRANSFERASE 29 U/L (15-37); BILIRUBIN,TOTAL 1.4 mg/dL (0.1-1.0); CREATINE KINASE, TOTAL ONLY 85 U/L (26-192); HCG,QUANTITATIVE < 1 mIU/mL (0-6); LIPASE 586 U/L (73-393); TOTAL PROTEIN, SERUM 7.7 g/dL (6.4-8.2)
[2019-11-07] MEDS ORDERED: HYDROCODONE/ACETAMINOPHEN 5-325 MG TABLET PO ONE (16:15)
[2019-11-07 16:25] LABS: VALPROIC ACID < 3 mcg/mL (50-100)
[2019-11-07] MEDS ORDERED: IOVERSOL 350 MG/ML 100 ML VIAL ONE (18:35)
[2019-11-07] MEDS ORDERED: SODIUM CHLORIDE 0.9% 100 ML ONE (18:35)
[2019-11-07] MEDS ORDERED: ONDANSETRON HCL 4 MG/2 ML VIAL IVP PRN ×2 (20:15→22:45)
[2019-11-07] MEDS ORDERED: 0.9% SODIUM CHLORIDE 10 ML SYRINGE IVP PRN (20:15)
[2019-11-07] MEDS ORDERED: ACETAMINOPHEN 325 MG TABLET PO PRN ×2 (20:15→22:45)
[2019-11-07] MEDS ORDERED: ZOLPIDEM TARTRATE 5 MG TABLET PO PRN (22:45)
[2019-11-07] MEDS ORDERED: MAGNESIUM HYDROXIDE SUSPENSION 30 ML UDCUP PO PRN (22:45)
[2019-11-07] MEDS ORDERED: BISACODYL 10 MG RECTAL RECTAL SUPPOSITORY PR PRN (22:45)
[2019-11-07] MEDS ORDERED: DEXTROSE 50%-WATER 25 GM/50 ML SYRINGE IVP PRN (23:00)
[2019-11-08] MEDS: MORPHINE SULFATE 2 MG/ML SYRINGE IVP PRN ×3 (00:13→21:43)
[2019-11-08 00:22] VITALS: BP 155/93
[2019-11-08 04:57] VITALS: BP 156/90
[2019-11-08 06:31] LABS: BASOPHILS % (AUTO) 0.8 % (0.0-2.0); HEMATOCRIT 33.9 % (36-46); HEMOGLOBIN 10.8 g/dL (12.0-16.0); LYMPHOCYTES # (AUTO) 1.3 K/uL (1.0-4.8); LYMPHOCYTES % (AUTO) 8.5 % (22.0-44.0); MEAN CORPUSCULAR HEMOGLOBIN 28.7 pg (26.0-34.0); MEAN CORPUSCULAR HGB CONC 31.8 G/dL (31.0-37.0); MEAN CORPUSCULAR VOLUME 90 fL (80-100); MONOCYTES % (AUTO) 6.4 % (2.0-9.0); NEUTROPHILS # (AUTO) 12.9 K/uL (1.8-7.7); NEUTROPHILS % (AUTO) 83.3 % (40.0-70.0); PLATELET COUNT (AUTO) 313 K/uL (150-450); RED BLOOD CELL COUNT(AUTO) 3.75 MIL/uL (4.00-5.20); RED CELL DISTRIBUTION WIDTH 17.7 % (11.5-14.5)
[2019-11-08 06:52] LABS: ALBUMIN 2.7 g/dL (3.4-5.0); BILIRUBIN,TOTAL 1.7 mg/dL (0.1-1.0); CALCIUM, TOTAL 9.1 mg/dL (8.8-10.5); CREATININE 5.5 mg/dL (0.60-1.30); TOTAL PROTEIN, SERUM 7.3 g/dL (6.4-8.2)
[2019-11-08] MEDS ORDERED: SODIUM CHLORIDE 0.9% 1,000 ML ONE (07:03)
[2019-11-08 07:09] LABS: POTASSIUM 6.5 mmol/L (3.5-5.1)
[2019-11-08 07:52] VITALS: BP 183/107
[2019-11-08] MEDS: HydrALAZINE HCL 50 MG TABLET PO SCH ×3 (08:28→20:09)
[2019-11-08] MEDS: DIVALPROEX SODIUM 500 MG DR TABLET PO SCH ×2 (08:28→20:09)
[2019-11-08] MEDS: LABETALOL HCL 100 MG TABLET PO SCH ×2 (08:29→20:09)
[2019-11-08] MEDS: AmLODIPine BESYLATE 10 MG TABLET PO SCH (08:29)
[2019-11-08] MEDS: GlipiZIDE 5 MG TABLET PO SCH (08:29)
[2019-11-08] MEDS: DOCUSATE SODIUM 100 MG CAPSULE PO SCH ×2 (08:29→20:09)
[2019-11-08] MEDS: PANTOPRAZOLE SODIUM 40 MG DR TABLET PO SCH (08:29)
[2019-11-08] MEDS: VITAMIN B COMP/VIT C/FOLIC ACID CAPSULE PO SCH (08:29)
[2019-11-08] MEDS: CALCIUM ACETATE 667 MG CAPSULE PO SCH ×3 (08:51→17:05)
[2019-11-08 10:41] VITALS: BP 179/99
[2019-11-08] MEDS: LOSARTAN POTASSIUM 50 MG TABLET PO SCH (12:26)
[2019-11-08] MEDS: HYDROCODONE/ACETAMINOPHEN 5-325 MG TABLET PO PRN ×2 (12:27→17:06)
[2019-11-08 15:38] VITALS: BP 144/84
[2019-11-08 19:27] VITALS: BP 170/88
[2019-11-08 20:54] LABS: GLUCOMETER DEV NAME(LOC) 5N.2; GLUCOSE,POINT OF CARE 77 MG/DL (70-110)
[2019-11-08 20:55] LABS: GLUCOMETER DEV NAME(LOC) 5N.2; GLUCOSE,POINT OF CARE 54 MG/DL (70-110)
[2019-11-08 20:55] LABS: GLUCOMETER DEV NAME(LOC) 5N.2; GLUCOSE,POINT OF CARE 56 MG/DL (70-110)
[2019-11-08 20:55] LABS: GLUCOMETER DEV NAME(LOC) 5N.2; GLUCOSE,POINT OF CARE 90 MG/DL (70-110)
[2019-11-08] MEDS: INSULIN LISPRO 100 UNITS/ML SQ PRN (20:57)
[2019-11-09] VITALS (7 sets, daily range): BP systolic 143–164; BP diastolic 78–94
[2019-11-09] MEDS: HYDROCODONE/ACETAMINOPHEN 5-325 MG TABLET PO PRN ×2 (05:08→12:29)
[2019-11-09 06:27] LABS: BASOPHILS % (AUTO) 0.5 % (0.0-2.0); EOSINOPHILS % (AUTO) 0.9 % (1.0-6.0); HEMATOCRIT 30.7 % (36-46); LYMPHOCYTES # (AUTO) 0.9 K/uL (1.0-4.8); LYMPHOCYTES % (AUTO) 6.5 % (22.0-44.0); MEAN CORPUSCULAR HEMOGLOBIN 29.4 pg (26.0-34.0); MEAN CORPUSCULAR HGB CONC 32.7 G/dL (31.0-37.0); MEAN CORPUSCULAR VOLUME 90 fL (80-100); MONOCYTES # (AUTO) 1.1 K/uL (0.1-1.0); MONOCYTES % (AUTO) 7.6 % (2.0-9.0); NEUTROPHILS # (AUTO) 11.9 K/uL (1.8-7.7); NEUTROPHILS % (AUTO) 84.5 % (40.0-70.0); PLATELET COUNT (AUTO) 294 K/uL (150-450); RED BLOOD CELL COUNT(AUTO) 3.42 MIL/uL (4.00-5.20); RED CELL DISTRIBUTION WIDTH 17.4 % (11.5-14.5)
[2019-11-09 06:37] LABS: CALCIUM, TOTAL 9.5 mg/dL (8.8-10.5); CREATININE 3.86 mg/dL (0.60-1.30)
[2019-11-09] MEDS: INSULIN LISPRO 100 UNITS/ML SQ PRN (07:00)
[2019-11-09] MEDS: PANTOPRAZOLE SODIUM 40 MG DR TABLET PO SCH (08:22)
[2019-11-09] MEDS: CALCIUM ACETATE 667 MG CAPSULE PO SCH ×3 (08:22→18:02)
[2019-11-09] MEDS: HydrALAZINE HCL 50 MG TABLET PO SCH ×3 (08:23→20:24)
[2019-11-09] MEDS: GlipiZIDE 5 MG TABLET PO SCH (08:23)
[2019-11-09] MEDS: LABETALOL HCL 100 MG TABLET PO SCH ×2 (08:23→20:25)
[2019-11-09] MEDS: AmLODIPine BESYLATE 10 MG TABLET PO SCH (08:23)
[2019-11-09] MEDS: LOSARTAN POTASSIUM 50 MG TABLET PO SCH (08:23)
[2019-11-09] MEDS: DIVALPROEX SODIUM 500 MG DR TABLET PO SCH ×2 (08:23→20:24)
[2019-11-09] MEDS: VITAMIN B COMP/VIT C/FOLIC ACID CAPSULE PO SCH (08:23)
[2019-11-09] MEDS: DOCUSATE SODIUM 100 MG CAPSULE PO SCH ×2 (08:26→20:25)
[2019-11-09 11:38] LABS: SPECIMENTYPE,BODY FLUID PARACENTESIS
[2019-11-09 12:56] LABS: APPEARANCE,UNSPUN,BODY FLUID HAZY (CLEAR)
[2019-11-09 12:57] LABS: APPEARANCE,SPUN,BODY FLUID CLEAR (CLEAR); BASOPHILS,BODY FLUID 0 %; COLOR,BODY FLUID ORANGE (LT YELLOW); EOSINOPHILS,BF (ANAL) 0 %; LYMPHOCYTES,BODY FLUID 10 %; MONOCYTES,BODY FLUID 15 %; NEUTROPHILS,BODY FLUID 75 %; TOTAL VOLUME,BODY FLUID 2000 mL; WBC, BODY FLUID 1215 /cu. mm.
[2019-11-09 17:46] LABS: GLUCOMETER DEV NAME(LOC) 5S.2A; GLUCOSE,POINT OF CARE 67 MG/DL (70-110)
[2019-11-09 17:46] LABS: GLUCOMETER DEV NAME(LOC) 5S.2A; GLUCOSE,POINT OF CARE 77 MG/DL (70-110)
[2019-11-09 17:46] LABS: GLUCOMETER DEV NAME(LOC) 5S.2A; GLUCOSE,POINT OF CARE 204 MG/DL (70-110)
[2019-11-09 17:46] LABS: GLUCOMETER DEV NAME(LOC) 5S.2A; GLUCOSE,POINT OF CARE 85 MG/DL (70-110)
[2019-11-09 18:37] LABS: APPEARANCE,URINE CLOUDY (CLEAR); BILIRUBIN,URINE NEGATIVE (NEGATIVE); GLUCOSE, URINE (UA) 250 mg/dL (NEGATIVE); KETONES,URINE NEGATIVE (NEGATIVE); LEUKOCYTE ESTERASE ,URINE TRACE (NEGATIVE); NITRATE,URINE NEGATIVE (NEGATIVE); OCCULT BLOOD,URINE NEGATIVE (NEGATIVE); PH,URINE 8.5 (5.0-8.0); PROTEIN,URINE SEE CONFIRM (NEGATIVE); UROBILINOGEN,URINE 0.2 mg/dL (<=1.0)
[2019-11-09 19:02] LABS: SULFOSALICYLIC ACID,URINE 4+ (Negative)
[2019-11-09 19:03] LABS: BACTERIA,URINE Many /HPF (None Seen); RBC,URINE None Seen /HPF (0-2); SQUAMOUS EPITHELIAL CELL,UR Many /LPF (None Seen); YEAST,URINE Few /HPF (None Seen)
[2019-11-09] MEDS: MORPHINE SULFATE 2 MG/ML SYRINGE IVP PRN (20:26)
[2019-11-10 04:53] VITALS: BP 149/87
[2019-11-10 06:31] LABS: BASOPHILS % (AUTO) 0.5 % (0.0-2.0); EOSINOPHILS % (AUTO) 1.1 % (1.0-6.0); HEMATOCRIT 30.3 % (36-46); HEMOGLOBIN 9.8 g/dL (12.0-16.0); LYMPHOCYTES # (AUTO) 0.9 K/uL (1.0-4.8); LYMPHOCYTES % (AUTO) 6.9 % (22.0-44.0); MEAN CORPUSCULAR HEMOGLOBIN 28.9 pg (26.0-34.0); MEAN CORPUSCULAR HGB CONC 32.4 G/dL (31.0-37.0); MEAN CORPUSCULAR VOLUME 89 fL (80-100); MONOCYTES # (AUTO) 0.9 K/uL (0.1-1.0); MONOCYTES % (AUTO) 6.8 % (2.0-9.0); NEUTROPHILS # (AUTO) 11.1 K/uL (1.8-7.7); NEUTROPHILS % (AUTO) 84.7 % (40.0-70.0); PLATELET COUNT (AUTO) 269 K/uL (150-450); RED BLOOD CELL COUNT(AUTO) 3.39 MIL/uL (4.00-5.20); RED CELL DISTRIBUTION WIDTH 17.2 % (11.5-14.5)
[2019-11-10 06:40] LABS: CALCIUM, TOTAL 9.2 mg/dL (8.8-10.5); CREATININE 4.94 mg/dL (0.60-1.30); POTASSIUM 5.8 mmol/L (3.5-5.1)
[2019-11-10 06:56] LABS: GLUCOMETER DEV NAME(LOC) 5N.2; GLUCOSE,POINT OF CARE 79 MG/DL (70-110)
[2019-11-10 06:56] LABS: GLUCOMETER DEV NAME(LOC) 5N.2; GLUCOSE,POINT OF CARE 137 MG/DL (70-110)
[2019-11-10 06:57] LABS: GLUCOMETER DEV NAME(LOC) 5N.2; GLUCOSE,POINT OF CARE 82 MG/DL (70-110)
[2019-11-10] MEDS: DOCUSATE SODIUM 100 MG CAPSULE PO SCH (09:00)
[2019-11-10] MEDS: PANTOPRAZOLE SODIUM 40 MG DR TABLET PO SCH (09:02)
[2019-11-10] MEDS: CALCIUM ACETATE 667 MG CAPSULE PO SCH (09:02)
[2019-11-10] MEDS: HydrALAZINE HCL 50 MG TABLET PO SCH (09:02)
[2019-11-10] MEDS: LABETALOL HCL 100 MG TABLET PO SCH (09:02)
[2019-11-10] MEDS: AmLODIPine BESYLATE 10 MG TABLET PO SCH (09:02)
[2019-11-10] MEDS: DIVALPROEX SODIUM 500 MG DR TABLET PO SCH (09:03)
[2019-11-10] MEDS: LOSARTAN POTASSIUM 50 MG TABLET PO SCH (09:03)
[2019-11-10] MEDS: VITAMIN B COMP/VIT C/FOLIC ACID CAPSULE PO SCH (09:03)
[2019-11-10 11:05] VITALS: BP 164/82
[2019-11-10] MEDS ORDERED: HYDR25TA84 PO (11:24)
[2019-11-10] MEDS ORDERED: HydrALAZINE HCL 25 MG TABLET PO SCH (16:00)
[2019-11-10 16:11] LABS: GLUCOMETER DEV NAME(LOC) 5S.2A; GLUCOSE,POINT OF CARE 176 MG/DL (70-110)
[2019-11-14] MEDS ORDERED: CloNIDine 0.2 MG/24 HOUR PATCH TD SCH (09:00)
== END 2019-11-10 17:00 | disposition home or self-care (01) ==
LOC: EMS 14:18 → 5S 18:37
PROVIDERS: ADMIT Internal Medicine; ATTEND Internal Medicine
PROC: 5A1D70Z Performance of Urinary Filtration, Intermittent, Less than 6 Hours Per Day (ICD-10-PCS; 2019-11-08)
PROC: 0W9G3ZZ Drainage of Peritoneal Cavity, Percutaneous Approach (ICD-10-PCS; principal; 2019-11-09)
PROC: 5A1D70Z Performance of Urinary Filtration, Intermittent, Less than 6 Hours Per Day (ICD-10-PCS; 2019-11-10)
DX: K74.60 Unspecified cirrhosis of liver (principal); E43 Unspecified severe protein-calorie malnutrition; D68.4 Acquired coagulation factor deficiency; E11.22 Type 2 diabetes mellitus with diabetic chronic kidney disease; R18.8 Other ascites; E87.5 Hyperkalemia; I12.0 Hypertensive chronic kidney disease with stage 5 chronic kidney disease or end stage renal disease; D63.1 Anemia in chronic kidney disease; S30.1XXA Contusion of abdominal wall, initial encounter; K86.1 Other chronic pancreatitis; N18.6 End stage renal disease; E78.5 Hyperlipidemia, unspecified; F31.9 Bipolar disorder, unspecified; E78.00 Pure hypercholesterolemia, unspecified; X58.XXXA Exposure to other specified factors, initial encounter; Z99.2 Dependence on renal dialysis; Z90.49 Acquired absence of other specified parts of digestive tract; Y93.89 Activity, other specified; Y92.89 Other specified places as the place of occurrence of the external cause; Y99.8 Other external cause status
CPT/HCPCS: 49083; 74177; 76700; 76942; 82042; 82945; 83615; 83735; 84157; 86705; 86708; 86803; 86850; 86900; 86901; 87070; 87081; 87086; 87205; 87340; 89051; G0378; J2270; J7030; J7050

== ENCOUNTER 2019-12-03 14:50 | Inpatient (IN) | payer OTHER ==
[~2019-12-03] VITALS: Ht 157.5 cm; Wt 60.9 kg
[~2019-12-03 14:50] MED LIST changes: -HYDR-2924 PO; +HYDR25TA84 PO
[2019-12-03 15:16] LABS: GLUCOSE,POINT OF CARE 131 MG/DL (70-110)
[2019-12-03 15:35] LABS: BASOPHILS % (AUTO) 0.7 % (0.0-2.0); EOSINOPHILS % (AUTO) 2.7 % (1.0-6.0); HEMATOCRIT 34.9 % (36-46); HEMOGLOBIN 10.9 g/dL (12.0-16.0); LYMPHOCYTES # (AUTO) 0.9 K/uL (1.0-4.8); LYMPHOCYTES % (AUTO) 7.8 % (22.0-44.0); MEAN CORPUSCULAR HEMOGLOBIN 27.6 pg (26.0-34.0); MEAN CORPUSCULAR HGB CONC 31.1 G/dL (31.0-37.0); MEAN CORPUSCULAR VOLUME 89 fL (80-100); MONOCYTES # (AUTO) 0.5 K/uL (0.1-1.0); MONOCYTES % (AUTO) 3.8 % (2.0-9.0); PLATELET COUNT (AUTO) 420 K/uL (150-450); RED BLOOD CELL COUNT(AUTO) 3.93 MIL/uL (4.00-5.20); RED CELL DISTRIBUTION WIDTH 17.6 % (11.5-14.5)
[2019-12-03 15:51] LABS: INR 1.1 (0.9-1.1); PROTHROMBIN TIME 10.7 SEC (9.4-11.6)
[2019-12-03 15:59] LABS: ALANINE AMINOTRANSFERASE 28 U/L (12-78); ALBUMIN 2.8 g/dL (3.4-5.0); ALKALINE PHOSPHATASE 236 U/L (46-116); ANION GAP 8 mmol/L (8-16); ASPARTATE AMINOTRANSFERASE 34 U/L (15-37); BILIRUBIN,TOTAL 0.7 mg/dL (0.1-1.0); CALCIUM, TOTAL 8.7 mg/dL (8.8-10.5); CARBON DIOXIDE 33 mmol/L (22-29); CHLORIDE 97 mmol/L (98-107); CREATININE 5.27 mg/dL (0.60-1.30); GLOMERULAR FILTR. RATE CALC 9 mL/min (>60); GLUCOSE,RANDOM 115 mg/dL (70-110); HCG,QUANTITATIVE < 1 mIU/mL (0-6); LIPASE 396 U/L (73-393); SODIUM SERUM 138 mmol/L (136-145); UREA NITROGEN, BLOOD 36 mg/dL (7-18)
[2019-12-03 16:02] LABS: POTASSIUM 6.2 mmol/L (3.5-5.1)
[2019-12-03] MEDS ORDERED: HydrALAZINE HCL 20 MG/ML VIAL IVP ONE (18:00)
[2019-12-03] MEDS ORDERED: DEXTROSE 50%-WATER 25 GM/50 ML SYRINGE IVP ONE (18:00)
[2019-12-03] MEDS ORDERED: MORPHINE SULFATE 4 MG/ML SYRINGE IVP ONE (18:00)
[2019-12-03] MEDS ORDERED: INSULIN REGULAR, HUMAN 100 UNITS/ML IVP ONE (18:00)
[2019-12-03] MEDS ORDERED: ONDANSETRON HCL 4 MG/2 ML VIAL IVP PRN ×2 (18:15→22:00)
[2019-12-03] MEDS ORDERED: 0.9% SODIUM CHLORIDE 10 ML SYRINGE IVP PRN ×2 (18:15→22:00)
[2019-12-03] MEDS ORDERED: SODIUM BICARBONATE [ADULT] 8.4% 50 MEQ/50 ML SYRINGE IVP ONE (18:15)
[2019-12-03] MEDS ORDERED: ACETAMINOPHEN 325 MG TABLET PO PRN (18:15)
[2019-12-03] MEDS ORDERED: CALCIUM GLUCONATE 2,000 MG in DEXTROSE 5%-WATER 50 ML IV ONE (18:30)
[2019-12-03 18:47] LABS: GLUCOSE,POINT OF CARE 197 MG/DL (70-110)
[2019-12-03 21:47] LABS: GLUCOSE,POINT OF CARE 93 MG/DL (70-110)
[2019-12-03] MEDS ORDERED: DEXTROSE 50%-WATER 25 GM/50 ML SYRINGE IVP PRN (22:00)
[2019-12-03] MEDS: LABETALOL HCL 100 MG TABLET PO SCH (22:57)
[2019-12-03] MEDS: DIVALPROEX SODIUM 500 MG DR TABLET PO SCH (22:57)
[2019-12-04 01:05] LABS: GLUCOSE,POINT OF CARE 144 MG/DL (70-110)
[2019-12-04] MEDS: INSULIN LISPRO 100 UNITS/ML SQ PRN (03:26)
[2019-12-04 03:32] LABS: GLUCOSE,POINT OF CARE 143 MG/DL (70-110)
[2019-12-04 06:28] LABS: BASOPHILS % (AUTO) 1.2 % (0.0-2.0); EOSINOPHILS % (AUTO) 2.9 % (1.0-6.0); HEMATOCRIT 31.3 % (36-46); HEMOGLOBIN 9.9 g/dL (12.0-16.0); LYMPHOCYTES # (AUTO) 1.3 K/uL (1.0-4.8); LYMPHOCYTES % (AUTO) 11.3 % (22.0-44.0); MEAN CORPUSCULAR HEMOGLOBIN 28.1 pg (26.0-34.0); MEAN CORPUSCULAR HGB CONC 31.7 G/dL (31.0-37.0); MEAN CORPUSCULAR VOLUME 89 fL (80-100); MONOCYTES # (AUTO) 0.6 K/uL (0.1-1.0); MONOCYTES % (AUTO) 5.1 % (2.0-9.0); NEUTROPHILS # (AUTO) 8.9 K/uL (1.8-7.7); NEUTROPHILS % (AUTO) 79.5 % (40.0-70.0); PLATELET COUNT (AUTO) 359 K/uL (150-450); RED BLOOD CELL COUNT(AUTO) 3.53 MIL/uL (4.00-5.20)
[2019-12-04 06:40] LABS: CALCIUM, TOTAL 8.5 mg/dL (8.8-10.5); CREATININE 5.79 mg/dL (0.60-1.30); MAGNESIUM 2.6 mg/dL (1.80-2.40); POTASSIUM 5.8 mmol/L (3.5-5.1)
[2019-12-04] MEDS: CALCIUM ACETATE 667 MG CAPSULE PO SCH ×3 (08:04→17:22)
[2019-12-04] MEDS: AmLODIPine BESYLATE 10 MG TABLET PO SCH (08:04)
[2019-12-04] MEDS: VITAMIN B COMP/VIT C/FOLIC ACID CAPSULE PO SCH (08:05)
[2019-12-04] MEDS: PANTOPRAZOLE SODIUM 40 MG DR TABLET PO SCH (08:05)
[2019-12-04] MEDS: LOSARTAN POTASSIUM 50 MG TABLET PO SCH (08:05)
[2019-12-04] MEDS: DIVALPROEX SODIUM 500 MG DR TABLET PO SCH ×2 (08:05→20:17)
[2019-12-04] MEDS: SEVELAMER CARBONATE 800 MG TABLET PO SCH ×3 (08:05→17:22)
[2019-12-04] MEDS: LABETALOL HCL 100 MG TABLET PO SCH ×2 (08:05→22:11)
[2019-12-04] MEDS: HydrALAZINE HCL 25 MG TABLET PO SCH ×3 (08:05→20:17)
[2019-12-04 12:48] VITALS: BP 191/104
[2019-12-04 15:15] LABS: SPECIMENTYPE,BODY FLUID PARACENTESIS
[2019-12-04 15:21] LABS: ALBUMIN 2.5 g/dL (3.4-5.0); BILIRUBIN,DIRECT 0.2 mg/dL (0.00-0.20); BILIRUBIN,TOTAL 0.5 mg/dL (0.1-1.0)
[2019-12-04 16:08] VITALS: BP 169/92
[2019-12-04] MEDS: CefTRIAXone SODIUM 2 GM in DEXTROSE 5%-WATER 50 ML IV SCH (16:16)
[2019-12-04 16:34] LABS: APPEARANCE,SPUN,BODY FLUID HAZY (CLEAR); APPEARANCE,UNSPUN,BODY FLUID SLIGHTLY CLOUDY (CLEAR); COLOR,BODY FLUID YELLOW (LT YELLOW); TOTAL VOLUME,BODY FLUID 3300 mL
[2019-12-04 16:35] LABS: WBC, BODY FLUID 149 /cu. mm.
[2019-12-04 16:50] LABS: BASOPHILS,BODY FLUID 0 %; EOSINOPHILS,BF (ANAL) 0 %; LYMPHOCYTES,BODY FLUID 40 %; MONOCYTES,BODY FLUID 15 %; NEUTROPHILS,BODY FLUID 36 %
[2019-12-04 16:52] LABS: OTHER CELLS,BODY FLUID 9
[2019-12-04 17:54] VITALS: BP 176/97
[2019-12-04 20:11] VITALS: BP 136/83
[2019-12-04] MEDS ORDERED: ACETAMINOPHEN 325 MG TABLET PO PRN (20:15)
[2019-12-04] MEDS ORDERED: INFLUENZA VIRUS VACCINE QVS 2019-20 (3YR+)/PF 60 MCG/0.5 ML SYRINGE IM ONE (20:15)
[2019-12-04] MEDS: ZOLPIDEM TARTRATE 5 MG TABLET PO PRN (22:11)
[2019-12-04] MEDS: ACETAMINOPHEN 325 MG TABLET PO PRN (22:11)
[2019-12-05 00:16] VITALS: BP 161/88
[2019-12-05 01:49] LABS: GLUCOMETER DEV NAME(LOC) 5N.1; GLUCOSE,POINT OF CARE 177 MG/DL (70-110)
[2019-12-05 04:37] VITALS: BP 136/91
[2019-12-05 07:14] LABS: BASOPHILS % (AUTO) 1.3 % (0.0-2.0); EOSINOPHILS % (AUTO) 3.5 % (1.0-6.0); HEMATOCRIT 32.2 % (36-46); HEMOGLOBIN 10.2 g/dL (12.0-16.0); LYMPHOCYTES % (AUTO) 10.5 % (22.0-44.0); MEAN CORPUSCULAR HEMOGLOBIN 27.8 pg (26.0-34.0); MEAN CORPUSCULAR HGB CONC 31.6 G/dL (31.0-37.0); MEAN CORPUSCULAR VOLUME 88 fL (80-100); MONOCYTES # (AUTO) 0.5 K/uL (0.1-1.0); MONOCYTES % (AUTO) 4.9 % (2.0-9.0); NEUTROPHILS # (AUTO) 7.6 K/uL (1.8-7.7); NEUTROPHILS % (AUTO) 79.8 % (40.0-70.0); PLATELET COUNT (AUTO) 364 K/uL (150-450); RED BLOOD CELL COUNT(AUTO) 3.67 MIL/uL (4.00-5.20); RED CELL DISTRIBUTION WIDTH 16.9 % (11.5-14.5)
[2019-12-05 07:26] LABS: CALCIUM, TOTAL 8.5 mg/dL (8.8-10.5); CREATININE 4.54 mg/dL (0.60-1.30); POTASSIUM 5.5 mmol/L (3.5-5.1)
[2019-12-05 08:03] VITALS: BP 162/90
[2019-12-05 08:40] LABS: GLUCOMETER DEV NAME(LOC) AHU.; GLUCOSE,POINT OF CARE 147 MG/DL (70-110)
[2019-12-05 08:40] LABS: GLUCOMETER DEV NAME(LOC) AHU.; GLUCOSE,POINT OF CARE 99 MG/DL (70-110)
[2019-12-05] MEDS: VITAMIN B COMP/VIT C/FOLIC ACID CAPSULE PO SCH (08:53)
[2019-12-05] MEDS: AmLODIPine BESYLATE 10 MG TABLET PO SCH (08:53)
[2019-12-05] MEDS: CALCIUM ACETATE 667 MG CAPSULE PO SCH ×3 (08:53→16:48)
[2019-12-05] MEDS: SEVELAMER CARBONATE 800 MG TABLET PO SCH ×3 (08:54→16:48)
[2019-12-05] MEDS: PANTOPRAZOLE SODIUM 40 MG DR TABLET PO SCH (08:54)
[2019-12-05] MEDS: LABETALOL HCL 100 MG TABLET PO SCH ×2 (08:55→20:26)
[2019-12-05] MEDS: DIVALPROEX SODIUM 500 MG DR TABLET PO SCH ×2 (08:55→20:25)
[2019-12-05] MEDS: HydrALAZINE HCL 25 MG TABLET PO SCH ×3 (08:56→20:25)
[2019-12-05] MEDS: LOSARTAN POTASSIUM 50 MG TABLET PO SCH (08:56)
[2019-12-05 11:16] LABS: GLUCOMETER DEV NAME(LOC) 5N.1; GLUCOSE,POINT OF CARE 115 MG/DL (70-110)
[2019-12-05 11:42] VITALS: BP 150/91
[2019-12-05 11:51] LABS: GLUCOMETER DEV NAME(LOC) 5S.2A; GLUCOSE,POINT OF CARE 144 MG/DL (70-110)
[2019-12-05] MEDS: INSULIN LISPRO 100 UNITS/ML SQ PRN (12:45)
[2019-12-05] MEDS ORDERED: SODIUM POLYSTYRENE SULFONATE 15 GM/60 ML SUSPENSION BOTTLE PO ONE (15:00)
[2019-12-05] MEDS: ACETAMINOPHEN 325 MG TABLET PO PRN ×2 (15:01→23:01)
[2019-12-05 16:05] VITALS: BP 150/91
[2019-12-05] MEDS: CefTRIAXone SODIUM 2 GM in DEXTROSE 5%-WATER 50 ML IV SCH (16:48)
[2019-12-05 17:51] LABS: GLUCOMETER DEV NAME(LOC) 5N.1; GLUCOSE,POINT OF CARE 105 MG/DL (70-110)
[2019-12-05 20:35] VITALS: BP 167/92
[2019-12-05] MEDS: HEPARIN SODIUM,PORCINE 5,000 UNITS/ML VIAL SQ SCH (21:00)
[2019-12-05 21:33] LABS: GLUCOMETER DEV NAME(LOC) 5N.1; GLUCOSE,POINT OF CARE 99 MG/DL (70-110)
[2019-12-05] MEDS: ZOLPIDEM TARTRATE 5 MG TABLET PO PRN (22:56)
[2019-12-06 00:25] VITALS: BP 145/79
[2019-12-06 05:24] VITALS: BP 154/80
[2019-12-06 06:57] LABS: CALCIUM, TOTAL 8.1 mg/dL (8.8-10.5); CREATININE 5.65 mg/dL (0.60-1.30); POTASSIUM 4.7 mmol/L (3.5-5.1)
[2019-12-06 08:18] VITALS: BP 154/83
[2019-12-06] MEDS: CALCIUM ACETATE 667 MG CAPSULE PO SCH (09:19)
[2019-12-06] MEDS: LOSARTAN POTASSIUM 50 MG TABLET PO SCH (09:20)
[2019-12-06] MEDS: SEVELAMER CARBONATE 800 MG TABLET PO SCH (09:20)
[2019-12-06] MEDS: HydrALAZINE HCL 25 MG TABLET PO SCH (09:21)
[2019-12-06] MEDS: VITAMIN B COMP/VIT C/FOLIC ACID CAPSULE PO SCH (09:21)
[2019-12-06] MEDS: HEPARIN SODIUM,PORCINE 5,000 UNITS/ML VIAL SQ SCH (09:21)
[2019-12-06] MEDS: AmLODIPine BESYLATE 10 MG TABLET PO SCH (09:21)
[2019-12-06] MEDS: DIVALPROEX SODIUM 500 MG DR TABLET PO SCH (09:21)
[2019-12-06] MEDS: LABETALOL HCL 100 MG TABLET PO SCH (09:22)
[2019-12-06] MEDS: PANTOPRAZOLE SODIUM 40 MG DR TABLET PO SCH (09:30)
[2019-12-06 14:22] LABS: GLUCOMETER DEV NAME(LOC) 5N.1; GLUCOSE,POINT OF CARE 77 MG/DL (70-110)
[2019-12-08] MEDS ORDERED: CloNIDine 0.2 MG/24 HOUR PATCH TD SCH (09:00)
== END 2019-12-06 11:35 | disposition home or self-care (01) | DRG 282 ==
LOC: EMS 14:52 → AHU 12-04 11:15 → 5S 12-04 17:45
PROVIDERS: ADMIT Internal Medicine; ATTEND Internal Medicine
PROC: 0W9G3ZZ Drainage of Peritoneal Cavity, Percutaneous Approach (ICD-10-PCS; principal; 2019-12-04)
PROC: 5A1D70Z Performance of Urinary Filtration, Intermittent, Less than 6 Hours Per Day (ICD-10-PCS; 2019-12-04)
DX: K85.90 Acute pancreatitis without necrosis or infection, unspecified (principal); I12.0 Hypertensive chronic kidney disease with stage 5 chronic kidney disease or end stage renal disease; E11.22 Type 2 diabetes mellitus with diabetic chronic kidney disease; R18.8 Other ascites; N18.6 End stage renal disease; E87.5 Hyperkalemia; K74.60 Unspecified cirrhosis of liver; F31.9 Bipolar disorder, unspecified; E78.5 Hyperlipidemia, unspecified; F12.90 Cannabis use, unspecified, uncomplicated; K86.2 Cyst of pancreas; F41.9 Anxiety disorder, unspecified; E78.00 Pure hypercholesterolemia, unspecified; Z90.49 Acquired absence of other specified parts of digestive tract; Z99.2 Dependence on renal dialysis; Z83.3 Family history of diabetes mellitus; Z82.49 Family history of ischemic heart disease and other diseases of the circulatory system
CPT/HCPCS: 49083; 74176; 76700; 76942; 82042; 82150; 82247; 82945; 83615; 83735; 84157; 87015; 87070; 87081; 87205; 87206; 89051; 93005; 99242; 99291; G0378; J0360; J0610; J0696; J1644; J1815; J2270; J3490; J7060

== ENCOUNTER 2020-01-09 17:47 | Inpatient (IN) | payer OTHER ==
[~2020-01-09] VITALS: Ht 157.5 cm; Wt 70.6 kg
[~2020-01-09 17:47] MED LIST changes: -CLON.2P TD; -GLIP5TAB11 PO; -INSLAN SQ
[2020-01-09 18:13] LABS: GLUCOSE,POINT OF CARE 172 MG/DL (70-110)
[2020-01-09 19:21] LABS: BASOPHILS % (AUTO) 1.2 % (0.0-2.0); EOSINOPHILS % (AUTO) 2.9 % (1.0-6.0); HEMATOCRIT 34.4 % (36-46); HEMOGLOBIN 10.8 g/dL (12.0-16.0); LYMPHOCYTES # (AUTO) 0.9 K/uL (1.0-4.8); MEAN CORPUSCULAR HGB CONC 31.5 G/dL (31.0-37.0); MEAN CORPUSCULAR VOLUME 92 fL (80-100); MONOCYTES # (AUTO) 0.4 K/uL (0.1-1.0); MONOCYTES % (AUTO) 3.6 % (2.0-9.0); NEUTROPHILS # (AUTO) 9.7 K/uL (1.8-7.7); NEUTROPHILS % (AUTO) 84.3 % (40.0-70.0); PLATELET COUNT (AUTO) 302 K/uL (150-450); RED BLOOD CELL COUNT(AUTO) 3.74 MIL/uL (4.00-5.20); RED CELL DISTRIBUTION WIDTH 20.7 % (11.5-14.5)
[2020-01-09 19:32] LABS: ANION GAP 10 mmol/L (8-16); CALCIUM, TOTAL 9.4 mg/dL (8.8-10.5); CARBON DIOXIDE 29 mmol/L (22-29); CHLORIDE 93 mmol/L (98-107); GLOMERULAR FILTR. RATE CALC 7 mL/min (>60); GLUCOSE,RANDOM 161 mg/dL (70-110); POTASSIUM 5.2 mmol/L (3.5-5.1); SODIUM SERUM 132 mmol/L (136-145); UREA NITROGEN, BLOOD 44 mg/dL (7-18)
[2020-01-09 19:39] LABS: INR 1.1 (0.9-1.1); PROTHROMBIN TIME 10.7 SEC (9.4-11.6)
[2020-01-09 19:44] LABS: ALANINE AMINOTRANSFERASE 39 U/L (12-78); ALBUMIN 3.3 g/dL (3.4-5.0); ALKALINE PHOSPHATASE 245 U/L (46-116); ASPARTATE AMINOTRANSFERASE 42 U/L (15-37); BILIRUBIN,TOTAL 0.8 mg/dL (0.1-1.0); HCG,QUANTITATIVE < 1 mIU/mL (0-6); LIPASE 665 U/L (73-393); TOTAL PROTEIN, SERUM 8.7 g/dL (6.4-8.2)
[2020-01-09 19:48] LABS: VALPROIC ACID < 3 mcg/mL (50-100)
[2020-01-09 20:00] LABS: B-TYPE NATRIURETIC PEPTIDE 3230 pg/mL (0-100)
[2020-01-09] MEDS ORDERED: ONDANSETRON HCL 4 MG/2 ML VIAL IVP ONE (20:00)
[2020-01-09] MEDS ORDERED: MORPHINE SULFATE 4 MG/ML SYRINGE IVP ONE (20:00)
[2020-01-09] MEDS ORDERED: ZOLPIDEM TARTRATE 5 MG TABLET PO PRN (22:00)
[2020-01-09] MEDS ORDERED: HYDROCODONE/ACETAMINOPHEN 5-325 MG TABLET PO PRN (22:00)
[2020-01-09] MEDS ORDERED: BISACODYL 10 MG RECTAL RECTAL SUPPOSITORY PR PRN (22:00)
[2020-01-09] MEDS ORDERED: SODIUM CHLORIDE 0.9% 1,000 ML IV ONE (22:00)
[2020-01-09] MEDS ORDERED: MAGNESIUM HYDROXIDE SUSPENSION 30 ML UDCUP PO PRN (22:00)
[2020-01-10 00:15] VITALS: BP 162/97
[2020-01-10] MEDS: ONDANSETRON HCL 4 MG/2 ML VIAL IVP PRN ×2 (01:13→21:23)
[2020-01-10] MEDS: MORPHINE SULFATE 2 MG/ML SYRINGE IVP PRN ×3 (01:14→21:23)
[2020-01-10] MEDS: HEPARIN SODIUM,PORCINE 5,000 UNITS/ML VIAL SQ SCH ×3 (01:23→16:00)
[2020-01-10 05:15] VITALS: BP 176/95
[2020-01-10] MEDS ORDERED: SEVELAMER CARBONATE 800 MG TABLET PO SCH (08:00)
[2020-01-10] MEDS ORDERED: CALCIUM ACETATE 667 MG CAPSULE PO SCH (08:00)
[2020-01-10 08:48] VITALS: BP 181/100
[2020-01-10] MEDS ORDERED: HydrALAZINE HCL 25 MG TABLET PO SCH (09:00)
[2020-01-10] MEDS: LABETALOL HCL 100 MG TABLET PO SCH ×2 (09:09→21:23)
[2020-01-10] MEDS: DOCUSATE SODIUM 100 MG CAPSULE PO SCH ×2 (09:09→21:23)
[2020-01-10] MEDS: DIVALPROEX SODIUM 500 MG DR TABLET PO SCH ×2 (09:11→21:23)
[2020-01-10] MEDS: LOSARTAN POTASSIUM 50 MG TABLET PO SCH (09:11)
[2020-01-10] MEDS: AmLODIPine BESYLATE 10 MG TABLET PO SCH (09:12)
[2020-01-10] MEDS: PANTOPRAZOLE SODIUM 40 MG DR TABLET PO SCH (09:12)
[2020-01-10] MEDS ORDERED: DEXTROSE 50%-WATER 25 GM/50 ML SYRINGE IVP PRN (09:15)
[2020-01-10] MEDS ORDERED: CloNIDine HCL 0.1 MG TABLET PO PRN (09:15)
[2020-01-10 11:37] LABS: GLUCOMETER DEV NAME(LOC) 4E.2; GLUCOSE,POINT OF CARE 129 MG/DL (70-110)
[2020-01-10 11:37] LABS: GLUCOMETER DEV NAME(LOC) 6N.1; GLUCOSE,POINT OF CARE 132 MG/DL (70-110)
[2020-01-10 14:09] LABS: BASOPHILS % (AUTO) 0.9 % (0.0-2.0); HEMATOCRIT 31.3 % (36-46); HEMOGLOBIN 10.1 g/dL (12.0-16.0); LYMPHOCYTES # (AUTO) 1.4 K/uL (1.0-4.8); LYMPHOCYTES % (AUTO) 13.4 % (22.0-44.0); MEAN CORPUSCULAR HEMOGLOBIN 29.7 pg (26.0-34.0); MEAN CORPUSCULAR HGB CONC 32.4 G/dL (31.0-37.0); MEAN CORPUSCULAR VOLUME 92 fL (80-100); MONOCYTES # (AUTO) 0.5 K/uL (0.1-1.0); MONOCYTES % (AUTO) 4.7 % (2.0-9.0); NEUTROPHILS # (AUTO) 8.4 K/uL (1.8-7.7); PLATELET COUNT (AUTO) 266 K/uL (150-450); RED BLOOD CELL COUNT(AUTO) 3.41 MIL/uL (4.00-5.20); RED CELL DISTRIBUTION WIDTH 20.3 % (11.5-14.5)
[2020-01-10 14:25] LABS: ALBUMIN 2.8 g/dL (3.4-5.0); BILIRUBIN,TOTAL 0.7 mg/dL (0.1-1.0); CALCIUM, TOTAL 8.9 mg/dL (8.8-10.5); CREATININE 5.42 mg/dL (0.60-1.30); POTASSIUM 4.9 mmol/L (3.5-5.1); TOTAL PROTEIN, SERUM 7.4 g/dL (6.4-8.2)
[2020-01-10] MEDS: HydrALAZINE HCL 50 MG TABLET PO SCH ×2 (16:00→17:44)
[2020-01-10 18:10] VITALS: BP 160/99
[2020-01-10 18:37] LABS: GLUCOMETER DEV NAME(LOC) 6N.1; GLUCOSE,POINT OF CARE 94 MG/DL (70-110)
[2020-01-10 19:00] VITALS: BP 140/82
[2020-01-10 22:18] LABS: GLUCOMETER DEV NAME(LOC) 4E.2; GLUCOSE,POINT OF CARE 176 MG/DL (70-110)
[2020-01-10 23:37] VITALS: BP 168/89
[2020-01-11] MEDS: HEPARIN SODIUM,PORCINE 5,000 UNITS/ML VIAL SQ SCH ×4 (00:09→23:13)
[2020-01-11] MEDS: INSULIN LISPRO 100 UNITS/ML SQ PRN ×2 (00:09→17:20)
[2020-01-11 03:16] LABS: GLUCOMETER DEV NAME(LOC) 4E.2; GLUCOSE,POINT OF CARE 76 MG/DL (70-110)
[2020-01-11 04:00] VITALS: BP 147/77
[2020-01-11 06:21] LABS: BASOPHILS % (AUTO) 1.1 % (0.0-2.0); EOSINOPHILS % (AUTO) 3.7 % (1.0-6.0); HEMATOCRIT 32.9 % (36-46); HEMOGLOBIN 10.4 g/dL (12.0-16.0); LYMPHOCYTES # (AUTO) 0.7 K/uL (1.0-4.8); LYMPHOCYTES % (AUTO) 8.8 % (22.0-44.0); MEAN CORPUSCULAR HEMOGLOBIN 29.2 pg (26.0-34.0); MEAN CORPUSCULAR HGB CONC 31.8 G/dL (31.0-37.0); MEAN CORPUSCULAR VOLUME 92 fL (80-100); MONOCYTES # (AUTO) 0.5 K/uL (0.1-1.0); MONOCYTES % (AUTO) 5.7 % (2.0-9.0); NEUTROPHILS # (AUTO) 6.5 K/uL (1.8-7.7); NEUTROPHILS % (AUTO) 80.7 % (40.0-70.0); PLATELET COUNT (AUTO) 256 K/uL (150-450); RED BLOOD CELL COUNT(AUTO) 3.58 MIL/uL (4.00-5.20); RED CELL DISTRIBUTION WIDTH 20.3 % (11.5-14.5)
[2020-01-11 06:51] LABS: ALBUMIN 2.6 g/dL (3.4-5.0); BILIRUBIN,TOTAL 0.6 mg/dL (0.1-1.0); CALCIUM, TOTAL 8.7 mg/dL (8.8-10.5); CREATININE 4.72 mg/dL (0.60-1.30); MAGNESIUM 2.2 mg/dL (1.80-2.40); PHOSPHORUS 5.8 mg/dL (2.5-4.9); POTASSIUM 4.8 mmol/L (3.5-5.1); TOTAL PROTEIN, SERUM 7.1 g/dL (6.4-8.2)
[2020-01-11 07:50] LABS: GLUCOMETER DEV NAME(LOC) 4E.2; GLUCOSE,POINT OF CARE 96 MG/DL (70-110)
[2020-01-11 07:51] VITALS: BP 163/93
[2020-01-11] MEDS: LABETALOL HCL 100 MG TABLET PO SCH (09:00)
[2020-01-11] MEDS: LOSARTAN POTASSIUM 50 MG TABLET PO SCH (09:00)
[2020-01-11] MEDS: HydrALAZINE HCL 50 MG TABLET PO SCH ×3 (09:00→21:30)
[2020-01-11] MEDS: DOCUSATE SODIUM 100 MG CAPSULE PO SCH ×2 (09:00→21:30)
[2020-01-11] MEDS: PANTOPRAZOLE SODIUM 40 MG DR TABLET PO SCH (09:00)
[2020-01-11] MEDS: AmLODIPine BESYLATE 10 MG TABLET PO SCH (09:00)
[2020-01-11] MEDS ORDERED: HydrALAZINE HCL 20 MG/ML VIAL IVP PRN (11:45)
[2020-01-11 12:49] VITALS: BP 165/85
[2020-01-11] MEDS: DIVALPROEX SODIUM 500 MG DR TABLET PO SCH ×2 (12:57→21:30)
[2020-01-11 15:49] VITALS: BP 130/73
[2020-01-11 18:21] LABS: GLUCOMETER DEV NAME(LOC) 4E.2; GLUCOSE,POINT OF CARE 213 MG/DL (70-110)
[2020-01-11] MEDS ORDERED: SEVELAMER CARBONATE 800 MG TABLET PO ONE (18:45)
[2020-01-11 19:50] VITALS: BP 135/70
[2020-01-11] MEDS: LABETALOL HCL 200 MG TABLET PO SCH (21:31)
[2020-01-11 23:20] VITALS: BP 154/96
[2020-01-12 00:28] LABS: GLUCOMETER DEV NAME(LOC) 6N.1; GLUCOSE,POINT OF CARE 124 MG/DL (70-110)
[2020-01-12 04:31] VITALS: BP 150/84
[2020-01-12 06:07] LABS: BASOPHILS % (AUTO) 1.2 % (0.0-2.0); HEMATOCRIT 34.1 % (36-46); HEMOGLOBIN 10.9 g/dL (12.0-16.0); LYMPHOCYTES # (AUTO) 1.1 K/uL (1.0-4.8); LYMPHOCYTES % (AUTO) 15.5 % (22.0-44.0); MEAN CORPUSCULAR HEMOGLOBIN 29.3 pg (26.0-34.0); MEAN CORPUSCULAR HGB CONC 31.8 G/dL (31.0-37.0); MEAN CORPUSCULAR VOLUME 92 fL (80-100); MONOCYTES # (AUTO) 0.5 K/uL (0.1-1.0); MONOCYTES % (AUTO) 7.3 % (2.0-9.0); NEUTROPHILS # (AUTO) 5.3 K/uL (1.8-7.7); PLATELET COUNT (AUTO) 259 K/uL (150-450); RED CELL DISTRIBUTION WIDTH 20.2 % (11.5-14.5)
[2020-01-12 06:21] LABS: ALBUMIN 2.7 g/dL (3.4-5.0); BILIRUBIN,TOTAL 0.6 mg/dL (0.1-1.0); CALCIUM, TOTAL 8.4 mg/dL (8.8-10.5); POTASSIUM 5.7 mmol/L (3.5-5.1); TOTAL PROTEIN, SERUM 7.2 g/dL (6.4-8.2)
[2020-01-12 06:51] LABS: GLUCOMETER DEV NAME(LOC) 6N.1; GLUCOSE,POINT OF CARE 126 MG/DL (70-110)
[2020-01-12 07:56] VITALS: BP 152/80
[2020-01-12] MEDS: HEPARIN SODIUM,PORCINE 5,000 UNITS/ML VIAL SQ SCH ×3 (08:00→23:42)
[2020-01-12] MEDS ORDERED: SODIUM CHLORIDE 0.9% 1,000 ML ONE ×2 (08:05)
[2020-01-12] MEDS: DOCUSATE SODIUM 100 MG CAPSULE PO SCH ×2 (08:08→20:00)
[2020-01-12] MEDS: SEVELAMER CARBONATE 800 MG TABLET PO SCH ×3 (08:09→18:12)
[2020-01-12] MEDS: DIVALPROEX SODIUM 500 MG DR TABLET PO SCH ×2 (08:09→20:00)
[2020-01-12] MEDS: PANTOPRAZOLE SODIUM 40 MG DR TABLET PO SCH (08:09)
[2020-01-12] MEDS: HydrALAZINE HCL 50 MG TABLET PO SCH ×3 (09:00→20:00)
[2020-01-12] MEDS: LABETALOL HCL 200 MG TABLET PO SCH ×2 (09:00→20:00)
[2020-01-12] MEDS ORDERED: EPOETIN ALFA 10,000 UNITS/ML 2 ML VIAL SQ SCH (09:00)
[2020-01-12 11:34] VITALS: BP 147/81
[2020-01-12] MEDS: INSULIN LISPRO 100 UNITS/ML SQ PRN ×3 (12:25→20:59)
[2020-01-12 12:49] LABS: GLUCOMETER DEV NAME(LOC) 6N.1; GLUCOSE,POINT OF CARE 164 MG/DL (70-110)
[2020-01-12 18:00] VITALS: BP 195/100
[2020-01-12] MEDS: LOSARTAN POTASSIUM 50 MG TABLET PO SCH (18:13)
[2020-01-12] MEDS: AmLODIPine BESYLATE 10 MG TABLET PO SCH (18:14)
[2020-01-12 18:44] LABS: GLUCOMETER DEV NAME(LOC) 6N.1; GLUCOSE,POINT OF CARE 76 MG/DL (70-110)
[2020-01-12 19:34] VITALS: BP 179/96
[2020-01-12 21:36] LABS: GLUCOMETER DEV NAME(LOC) 6N.1; GLUCOSE,POINT OF CARE 164 MG/DL (70-110)
[2020-01-12] MEDS: ACETAMINOPHEN 325 MG TABLET PO PRN (22:14)
[2020-01-13 05:38] VITALS: BP 163/89
[2020-01-13] MEDS: INSULIN LISPRO 100 UNITS/ML SQ PRN ×2 (05:49→11:40)
[2020-01-13 06:13] LABS: GLUCOMETER DEV NAME(LOC) 6N.1; GLUCOSE,POINT OF CARE 141 MG/DL (70-110)
[2020-01-13 06:33] LABS: BASOPHILS % (AUTO) 0.5 % (0.0-2.0); EOSINOPHILS % (AUTO) 2.3 % (1.0-6.0); HEMOGLOBIN 11.8 g/dL (12.0-16.0); LYMPHOCYTES # (AUTO) 0.8 K/uL (1.0-4.8); LYMPHOCYTES % (AUTO) 9.3 % (22.0-44.0); MEAN CORPUSCULAR HEMOGLOBIN 29.3 pg (26.0-34.0); MEAN CORPUSCULAR VOLUME 92 fL (80-100); MONOCYTES # (AUTO) 0.5 K/uL (0.1-1.0); NEUTROPHILS # (AUTO) 7.3 K/uL (1.8-7.7); NEUTROPHILS % (AUTO) 81.9 % (40.0-70.0); PLATELET COUNT (AUTO) 257 K/uL (150-450); RED BLOOD CELL COUNT(AUTO) 4.05 MIL/uL (4.00-5.20); RED CELL DISTRIBUTION WIDTH 19.8 % (11.5-14.5)
[2020-01-13 07:02] LABS: ALBUMIN 2.6 g/dL (3.4-5.0); BILIRUBIN,TOTAL 0.5 mg/dL (0.1-1.0); CALCIUM, TOTAL 8.8 mg/dL (8.8-10.5); CREATININE 4.31 mg/dL (0.60-1.30); POTASSIUM 5.4 mmol/L (3.5-5.1); TOTAL PROTEIN, SERUM 7.2 g/dL (6.4-8.2)
[2020-01-13 08:45] VITALS: BP 148/81
[2020-01-13] MEDS: DOCUSATE SODIUM 100 MG CAPSULE PO SCH (08:45)
[2020-01-13] MEDS: DIVALPROEX SODIUM 500 MG DR TABLET PO SCH (08:45)
[2020-01-13] MEDS: LOSARTAN POTASSIUM 50 MG TABLET PO SCH (08:46)
[2020-01-13] MEDS: PANTOPRAZOLE SODIUM 40 MG DR TABLET PO SCH (08:47)
[2020-01-13] MEDS: LABETALOL HCL 200 MG TABLET PO SCH (08:47)
[2020-01-13] MEDS: HydrALAZINE HCL 50 MG TABLET PO SCH (08:47)
[2020-01-13] MEDS: SEVELAMER CARBONATE 800 MG TABLET PO SCH ×2 (08:48→11:37)
[2020-01-13] MEDS: HEPARIN SODIUM,PORCINE 5,000 UNITS/ML VIAL SQ SCH (08:48)
[2020-01-13] MEDS: AmLODIPine BESYLATE 10 MG TABLET PO SCH (08:53)
[2020-01-13] MEDS ORDERED: VITAMIN B COMP/VIT C/FOLIC ACID CAPSULE PO SCH (09:00)
[2020-01-13] MEDS: ACETAMINOPHEN 325 MG TABLET PO PRN (11:05)
[2020-01-13 11:36] VITALS: BP 146/77
[2020-01-13 12:32] LABS: GLUCOMETER DEV NAME(LOC) 6N.1; GLUCOSE,POINT OF CARE 157 MG/DL (70-110)
== END 2020-01-13 12:45 | disposition home or self-care (01) | DRG 282 ==
LOC: EMS 17:49 → 4E 22:30
PROVIDERS: ADMIT Internal Medicine; ATTEND Internal Medicine
PROC: 5A1D70Z Performance of Urinary Filtration, Intermittent, Less than 6 Hours Per Day (ICD-10-PCS; 2020-01-10)
PROC: 0W9G3ZZ Drainage of Peritoneal Cavity, Percutaneous Approach (ICD-10-PCS; principal; 2020-01-11)
PROC: 5A1D70Z Performance of Urinary Filtration, Intermittent, Less than 6 Hours Per Day (ICD-10-PCS; 2020-01-12)
DX: K85.90 Acute pancreatitis without necrosis or infection, unspecified (principal); I13.2 Hypertensive heart and chronic kidney disease with heart failure and with stage 5 chronic kidney disease, or end stage renal disease; E44.0 Moderate protein-calorie malnutrition; E11.22 Type 2 diabetes mellitus with diabetic chronic kidney disease; R18.8 Other ascites; N18.6 End stage renal disease; K74.60 Unspecified cirrhosis of liver; I50.30 Unspecified diastolic (congestive) heart failure; D64.9 Anemia, unspecified; F41.9 Anxiety disorder, unspecified; F31.9 Bipolar disorder, unspecified; E78.00 Pure hypercholesterolemia, unspecified; F12.90 Cannabis use, unspecified, uncomplicated; E78.5 Hyperlipidemia, unspecified; Z99.2 Dependence on renal dialysis; Z68.25 Body mass index [BMI] 25.0-25.9, adult; Z98.890 Other specified postprocedural states
CPT/HCPCS: 49083; 76700; 76942; 83735; 84100; 84145; 87081; 87340; 93005; G0378; J0885; J1644; J2270; J2405; J7030

== ENCOUNTER 2020-03-11 09:52 | Emergency (ER) | payer OTHER ==
[~2020-03-11] VITALS: Ht 160 cm; Wt 59.0 kg
[2020-03-11] MEDS ORDERED: HYDROCODONE/ACETAMINOPHEN 5-325 MG TABLET PO ONE (10:45)
[2020-03-11 10:56] LABS: BASOPHILS % (AUTO) 0.6 % (0.0-2.0); EOSINOPHILS % (AUTO) 6.6 % (1.0-6.0); HEMATOCRIT 38.2 % (36-46); HEMOGLOBIN 12.2 g/dL (12.0-16.0); LYMPHOCYTES # (AUTO) 1.5 K/uL (1.0-4.8); LYMPHOCYTES % (AUTO) 13.4 % (22.0-44.0); MEAN CORPUSCULAR HEMOGLOBIN 29.2 pg (26.0-34.0); MEAN CORPUSCULAR HGB CONC 31.8 G/dL (31.0-37.0); MEAN CORPUSCULAR VOLUME 92 fL (80-100); MONOCYTES # (AUTO) 0.5 K/uL (0.1-1.0); NEUTROPHILS # (AUTO) 8.1 K/uL (1.8-7.7); NEUTROPHILS % (AUTO) 74.4 % (40.0-70.0); PLATELET COUNT (AUTO) 254 K/uL (150-450); RED BLOOD CELL COUNT(AUTO) 4.16 MIL/uL (4.00-5.20); RED CELL DISTRIBUTION WIDTH 17.7 % (11.5-14.5)
[2020-03-11 11:10] LABS: INR 1.1 (0.9-1.1); PROTHROMBIN TIME 10.8 SEC (9.4-11.6)
[2020-03-11] MEDS ORDERED: FentaNYL CITRATE-PF 100 MCG/2 ML VIAL IVP ONE (11:56)
[2020-03-11] MEDS ORDERED: FentaNYL CITRATE-PF 100 MCG/2 ML VIAL ONE (11:58)
[2020-03-11] MEDS ORDERED: ONDANSETRON HCL 4 MG/2 ML VIAL IVP ONE (11:59)
[2020-03-11] MEDS ORDERED: ONDANSETRON HCL 4 MG/2 ML VIAL ONE (12:08)
[2020-03-11] MEDS ORDERED: HydrALAZINE HCL 20 MG/ML VIAL IVP ONE (13:15)
[2020-03-11] MEDS ORDERED: METOCLOPRAMIDE HCL 5 MG/ML 2 ML VIAL IVP ONE (13:15)
[2020-03-11 14:54] VITALS: BP 154/89
== END 2020-03-11 14:59 | disposition home or self-care (01) ==
LOC: EMS 09:57
DX: R18.8 Other ascites (principal); M54.9 Dorsalgia, unspecified; G89.29 Other chronic pain; I12.0 Hypertensive chronic kidney disease with stage 5 chronic kidney disease or end stage renal disease; E11.22 Type 2 diabetes mellitus with diabetic chronic kidney disease; N18.6 End stage renal disease; F41.9 Anxiety disorder, unspecified; F31.9 Bipolar disorder, unspecified; F12.90 Cannabis use, unspecified, uncomplicated; Z99.2 Dependence on renal dialysis; Z90.89 Acquired absence of other organs
CPT/HCPCS: 36415; 49083; 76942; 85025; 85610; 85730; 96374; 96375; 99285; J0360; J2405; J2765; J3010

== ENCOUNTER 2020-04-09 19:35 | Inpatient (IN) | payer OTHER ==
[~2020-04-09] VITALS: Ht 160 cm; Wt 64.3 kg
[2020-04-09 20:04] LABS: GLUCOSE,POINT OF CARE 182 MG/DL (70-110)
[2020-04-09 21:26] LABS: BASOPHILS % (AUTO) 1.3 % (0.0-2.0); EOSINOPHILS % (AUTO) 11.8 % (1.0-6.0); HEMATOCRIT 29.9 % (36-46); HEMOGLOBIN 9.8 g/dL (12.0-16.0); LYMPHOCYTES # (AUTO) 1.4 K/uL (1.0-4.8); LYMPHOCYTES % (AUTO) 13.3 % (22.0-44.0); MEAN CORPUSCULAR HEMOGLOBIN 30.1 pg (26.0-34.0); MEAN CORPUSCULAR HGB CONC 32.9 G/dL (31.0-37.0); MEAN CORPUSCULAR VOLUME 92 fL (80-100); MONOCYTES # (AUTO) 0.3 K/uL (0.1-1.0); MONOCYTES % (AUTO) 3.1 % (2.0-9.0); NEUTROPHILS # (AUTO) 7.6 K/uL (1.8-7.7); NEUTROPHILS % (AUTO) 70.5 % (40.0-70.0); PLATELET COUNT (AUTO) 178 K/uL (150-450); RED BLOOD CELL COUNT(AUTO) 3.27 MIL/uL (4.00-5.20); RED CELL DISTRIBUTION WIDTH 18.4 % (11.5-14.5)
[2020-04-09 21:39] LABS: CALCIUM, TOTAL 10.2 mg/dL (8.8-10.5); CREATININE 7.31 mg/dL (0.60-1.30); POTASSIUM 5.2 mmol/L (3.5-5.1)
[2020-04-09 21:52] LABS: ALBUMIN 3.8 g/dL (3.4-5.0); BILIRUBIN,TOTAL 0.8 mg/dL (0.1-1.0); TOTAL PROTEIN, SERUM 8.6 g/dL (6.4-8.2)
[2020-04-09] MEDS ORDERED: MORPHINE SULFATE 4 MG/ML SYRINGE IVP ONE (22:30)
[2020-04-09] MEDS ORDERED: IOVERSOL 350 MG/ML 150 ML VIAL ONE (22:39)
[2020-04-09] MEDS ORDERED: IOVERSOL 350 MG/ML 100 ML VIAL ONE (22:39)
[2020-04-09] MEDS ORDERED: SODIUM CHLORIDE 0.9% 0 ML ONE (22:39)
[2020-04-10] VITALS (8 sets, daily range): BP systolic 155–231; BP diastolic 92–147
[2020-04-10] MEDS ORDERED: 0.9% SODIUM CHLORIDE 10 ML SYRINGE IVP PRN
[2020-04-10] MEDS ORDERED: ONDANSETRON HCL 4 MG/2 ML VIAL IVP PRN ×2 (02:00)
[2020-04-10] MEDS ORDERED: IPRATROPIUM BROMIDE 0.5 MG/2.5 ML NEB SOLUTION NEB PRN ×2 (02:00→02:15)
[2020-04-10] MEDS ORDERED: ZOLPIDEM TARTRATE 5 MG TABLET PO PRN ×2 (02:00→02:15)
[2020-04-10] MEDS ORDERED: ACETAMINOPHEN 325 MG TABLET PO PRN ×3 (02:00→02:15)
[2020-04-10] MEDS ORDERED: ALBUTEROL SULFATE 2.5 MG/0.5 ML NEB SOLUTION NEB PRN ×2 (02:00→02:15)
[2020-04-10] MEDS ORDERED: MORPHINE SULFATE 2 MG/ML SYRINGE IVP PRN (02:00)
[2020-04-10] MEDS ORDERED: BISACODYL 10 MG RECTAL RECTAL SUPPOSITORY PR PRN ×2 (02:00→02:15)
[2020-04-10] MEDS ORDERED: MAGNESIUM HYDROXIDE SUSPENSION 30 ML UDCUP PO PRN ×2 (02:00→02:15)
[2020-04-10] MEDS ORDERED: HYDROCODONE/ACETAMINOPHEN 5-325 MG TABLET PO PRN (02:15)
[2020-04-10] MEDS ORDERED: LABETALOL HCL 100 MG TABLET PO ONE (02:15)
[2020-04-10] MEDS ORDERED: LOSARTAN POTASSIUM 50 MG TABLET PO ONE (02:15)
[2020-04-10] MEDS: MORPHINE SULFATE 2 MG/ML SYRINGE IVP PRN ×2 (02:34→12:10)
[2020-04-10] MEDS: LEVOFLOXACIN 750 MG/D5% WATER 150 ML IV SCH (03:45)
[2020-04-10] MEDS: MetroNIDAZOLE 500 MG/NACL 100 ML IV SCH ×3 (05:19→20:00)
[2020-04-10] MEDS: ONDANSETRON HCL 4 MG/2 ML VIAL IVP PRN ×3 (07:43→23:51)
[2020-04-10] MEDS: CALCIUM ACETATE 667 MG CAPSULE PO SCH ×3 (07:44→17:01)
[2020-04-10] MEDS: SEVELAMER CARBONATE 800 MG TABLET PO SCH ×3 (07:44→17:01)
[2020-04-10] MEDS: HEPARIN SODIUM,PORCINE 5,000 UNITS/ML VIAL SQ SCH ×3 (07:44→23:51)
[2020-04-10] MEDS: VITAMIN B COMP/VIT C/FOLIC ACID CAPSULE PO SCH (07:45)
[2020-04-10] MEDS: HydrALAZINE HCL 25 MG TABLET PO SCH ×3 (07:45→20:01)
[2020-04-10] MEDS: DOCUSATE SODIUM 100 MG CAPSULE PO SCH ×2 (07:45→20:00)
[2020-04-10] MEDS: DIVALPROEX SODIUM 500 MG DR TABLET PO SCH ×2 (07:47→20:00)
[2020-04-10] MEDS ORDERED: HEPARIN SODIUM,PORCINE 5,000 UNITS/ML VIAL SQ SCH (08:00)
[2020-04-10] MEDS ORDERED: DOCUSATE SODIUM 100 MG CAPSULE PO SCH (09:00)
[2020-04-10] MEDS ORDERED: SODIUM CHLORIDE 0.9% 2,000 ML ONE (10:08)
[2020-04-10] MEDS: LABETALOL HCL 100 MG TABLET PO SCH ×2 (14:26→20:01)
[2020-04-10] MEDS: AmLODIPine BESYLATE 10 MG TABLET PO SCH (14:27)
[2020-04-10] MEDS: LOSARTAN POTASSIUM 50 MG TABLET PO SCH (14:27)
[2020-04-10 17:42] LABS: BASOPHILS % (AUTO) 1.2 % (0.0-2.0); HEMATOCRIT 27.7 % (36-46); HEMOGLOBIN 9.1 g/dL (12.0-16.0); LYMPHOCYTES # (AUTO) 1.1 K/uL (1.0-4.8); LYMPHOCYTES % (AUTO) 13.3 % (22.0-44.0); MEAN CORPUSCULAR HEMOGLOBIN 30.2 pg (26.0-34.0); MEAN CORPUSCULAR HGB CONC 32.8 G/dL (31.0-37.0); MEAN CORPUSCULAR VOLUME 92 fL (80-100); MONOCYTES # (AUTO) 0.4 K/uL (0.1-1.0); MONOCYTES % (AUTO) 5.5 % (2.0-9.0); NEUTROPHILS # (AUTO) 5.8 K/uL (1.8-7.7); PLATELET COUNT (AUTO) 153 K/uL (150-450); RED BLOOD CELL COUNT(AUTO) 3.01 MIL/uL (4.00-5.20); RED CELL DISTRIBUTION WIDTH 18.8 % (11.5-14.5)
[2020-04-10 18:01] LABS: CALCIUM, TOTAL 9.2 mg/dL (8.8-10.5); CREATININE 4.22 mg/dL (0.60-1.30); POTASSIUM 4.1 mmol/L (3.5-5.1)
[2020-04-10 18:07] LABS: ALBUMIN 3.2 g/dL (3.4-5.0); BILIRUBIN,TOTAL 0.9 mg/dL (0.1-1.0); TOTAL PROTEIN, SERUM 7.4 g/dL (6.4-8.2)
[2020-04-10] MEDS: HYDROCODONE/ACETAMINOPHEN 5-325 MG TABLET PO PRN (19:56)
[2020-04-10 20:16] LABS: GLUCOMETER DEV NAME(LOC) 5S.2A; GLUCOSE,POINT OF CARE 168 MG/DL (70-110)
[2020-04-11] VITALS (7 sets, daily range): BP systolic 146–188; BP diastolic 76–99
[2020-04-11] MEDS: MetroNIDAZOLE 500 MG/NACL 100 ML IV SCH ×3 (04:19→18:53)
[2020-04-11] MEDS: HYDROCODONE/ACETAMINOPHEN 5-325 MG TABLET PO PRN ×2 (05:55→20:53)
[2020-04-11] MEDS: CALCIUM ACETATE 667 MG CAPSULE PO SCH ×3 (08:59→18:31)
[2020-04-11] MEDS: LABETALOL HCL 100 MG TABLET PO SCH ×2 (09:01→20:53)
[2020-04-11] MEDS: VITAMIN B COMP/VIT C/FOLIC ACID CAPSULE PO SCH (09:01)
[2020-04-11] MEDS: HydrALAZINE HCL 25 MG TABLET PO SCH ×3 (09:01→22:33)
[2020-04-11] MEDS: DIVALPROEX SODIUM 500 MG DR TABLET PO SCH ×2 (09:01→20:50)
[2020-04-11] MEDS: LOSARTAN POTASSIUM 50 MG TABLET PO SCH (09:01)
[2020-04-11] MEDS: AmLODIPine BESYLATE 10 MG TABLET PO SCH (09:01)
[2020-04-11] MEDS: DOCUSATE SODIUM 100 MG CAPSULE PO SCH ×2 (09:01→22:33)
[2020-04-11] MEDS: HEPARIN SODIUM,PORCINE 5,000 UNITS/ML VIAL SQ SCH ×3 (09:01→23:41)
[2020-04-11] MEDS: SEVELAMER CARBONATE 800 MG TABLET PO SCH ×3 (09:01→18:21)
[2020-04-11] MEDS: ONDANSETRON HCL 4 MG/2 ML VIAL IVP PRN ×2 (09:09→18:32)
[2020-04-11] MEDS ORDERED: LEVO750T68 PO (12:58)
[2020-04-11] MEDS ORDERED: METR500 PO (12:59)
[2020-04-11 20:28] LABS: GLUCOMETER DEV NAME(LOC) 6N.2; GLUCOSE,POINT OF CARE 122 MG/DL (70-110)
[2020-04-11] MEDS ORDERED: SODIUM CHLORIDE 0.9% 250 ML IV ONE (20:38)
[2020-04-11 22:52] LABS: BASOPHILS % (AUTO) 1.4 % (0.0-2.0); EOSINOPHILS % (AUTO) 8.3 % (1.0-6.0); HEMATOCRIT 27.2 % (36-46); HEMOGLOBIN 8.8 g/dL (12.0-16.0); LYMPHOCYTES # (AUTO) 1.1 K/uL (1.0-4.8); LYMPHOCYTES % (AUTO) 14.2 % (22.0-44.0); MEAN CORPUSCULAR HEMOGLOBIN 30.1 pg (26.0-34.0); MEAN CORPUSCULAR HGB CONC 32.5 G/dL (31.0-37.0); MEAN CORPUSCULAR VOLUME 93 fL (80-100); MONOCYTES # (AUTO) 0.5 K/uL (0.1-1.0); MONOCYTES % (AUTO) 5.7 % (2.0-9.0); NEUTROPHILS # (AUTO) 5.7 K/uL (1.8-7.7); NEUTROPHILS % (AUTO) 70.4 % (40.0-70.0); PLATELET COUNT (AUTO) 193 K/uL (150-450); RED BLOOD CELL COUNT(AUTO) 2.94 MIL/uL (4.00-5.20); RED CELL DISTRIBUTION WIDTH 18.5 % (11.5-14.5)
[2020-04-11 23:12] LABS: CALCIUM, TOTAL 9.2 mg/dL (8.8-10.5); CREATININE 6.58 mg/dL (0.60-1.30)
[2020-04-11 23:18] LABS: ALBUMIN 3.2 g/dL (3.4-5.0); BILIRUBIN,TOTAL 0.7 mg/dL (0.1-1.0); TOTAL PROTEIN, SERUM 7.1 g/dL (6.4-8.2)
[2020-04-12 00:34] VITALS: BP 149/81
[2020-04-12 01:11] LABS: GLUCOMETER DEV NAME(LOC) 6S.1; GLUCOSE,POINT OF CARE 106 MG/DL (70-110)
[2020-04-12] MEDS: LEVOFLOXACIN 750 MG/D5% WATER 150 ML IV SCH (03:41)
[2020-04-12] MEDS: MetroNIDAZOLE 500 MG/NACL 100 ML IV SCH ×2 (04:00→10:50)
[2020-04-12] MEDS ORDERED: SODIUM CHLORIDE 0.9% 3,000 ML ONE (04:41)
[2020-04-12] MEDS: HYDROCODONE/ACETAMINOPHEN 5-325 MG TABLET PO PRN ×2 (04:46→09:47)
[2020-04-12] MEDS: ONDANSETRON HCL 4 MG/2 ML VIAL IVP PRN ×2 (04:53→14:34)
[2020-04-12 07:47] LABS: BASOPHILS % (AUTO) 1.5 % (0.0-2.0); EOSINOPHILS % (AUTO) 10.6 % (1.0-6.0); HEMATOCRIT 26.1 % (36-46); HEMOGLOBIN 8.8 g/dL (12.0-16.0); LYMPHOCYTES # (AUTO) 0.7 K/uL (1.0-4.8); LYMPHOCYTES % (AUTO) 10.6 % (22.0-44.0); MEAN CORPUSCULAR HEMOGLOBIN 31.1 pg (26.0-34.0); MEAN CORPUSCULAR HGB CONC 33.7 G/dL (31.0-37.0); MEAN CORPUSCULAR VOLUME 92 fL (80-100); MONOCYTES # (AUTO) 0.4 K/uL (0.1-1.0); MONOCYTES % (AUTO) 5.7 % (2.0-9.0); NEUTROPHILS % (AUTO) 71.6 % (40.0-70.0); PLATELET COUNT (AUTO) 197 K/uL (150-450); RED BLOOD CELL COUNT(AUTO) 2.83 MIL/uL (4.00-5.20); RED CELL DISTRIBUTION WIDTH 18.7 % (11.5-14.5)
[2020-04-12 08:23] LABS: ALBUMIN 3.2 g/dL (3.4-5.0); BILIRUBIN,TOTAL 0.7 mg/dL (0.1-1.0); CALCIUM, TOTAL 8.7 mg/dL (8.8-10.5); CREATININE 4.36 mg/dL (0.60-1.30); POTASSIUM 3.7 mmol/L (3.5-5.1); TOTAL PROTEIN, SERUM 7.3 g/dL (6.4-8.2)
[2020-04-12] MEDS ORDERED: EPOETIN ALFA 10,000 UNITS/ML VIAL SQ SCH (09:00)
[2020-04-12] MEDS ORDERED: LABETALOL HCL 200 MG TABLET PO SCH (09:00)
[2020-04-12] MEDS: HydrALAZINE HCL 25 MG TABLET PO SCH (09:50)
[2020-04-12] MEDS: SEVELAMER CARBONATE 800 MG TABLET PO SCH ×2 (09:50→11:51)
[2020-04-12] MEDS: DOCUSATE SODIUM 100 MG CAPSULE PO SCH (09:51)
[2020-04-12] MEDS: VITAMIN B COMP/VIT C/FOLIC ACID CAPSULE PO SCH (09:52)
[2020-04-12] MEDS: AmLODIPine BESYLATE 10 MG TABLET PO SCH (09:52)
[2020-04-12] MEDS: DIVALPROEX SODIUM 500 MG DR TABLET PO SCH (09:52)
[2020-04-12] MEDS: LOSARTAN POTASSIUM 50 MG TABLET PO SCH (09:53)
[2020-04-12] MEDS: CALCIUM ACETATE 667 MG CAPSULE PO SCH ×2 (09:53→11:51)
[2020-04-12] MEDS: HEPARIN SODIUM,PORCINE 5,000 UNITS/ML VIAL SQ SCH (09:55)
[2020-04-12 10:01] LABS: GLUCOMETER DEV NAME(LOC) 6N.2; GLUCOSE,POINT OF CARE 108 MG/DL (70-110)
[2020-04-12 10:31] VITALS: BP 187/88
[2020-04-12 12:29] LABS: GLUCOMETER DEV NAME(LOC) 6N.2; GLUCOSE,POINT OF CARE 110 MG/DL (70-110)
[2020-04-12] MEDS ORDERED: CloNIDine HCL 0.1 MG TABLET PO ONE (14:00)
[2020-04-12 14:40] VITALS: BP 156/78
== END 2020-04-12 14:35 | disposition home or self-care (01) | DRG 282 ==
LOC: EMS 19:36 → 5S 23:45 → 6N 04-11 17:50
PROVIDERS: ADMIT Hospitalist; ATTEND Hospitalist
PROC: 5A1D70Z Performance of Urinary Filtration, Intermittent, Less than 6 Hours Per Day (ICD-10-PCS; principal; 2020-04-10)
PROC: 5A1D70Z Performance of Urinary Filtration, Intermittent, Less than 6 Hours Per Day (ICD-10-PCS; 2020-04-12)
DX: K85.90 Acute pancreatitis without necrosis or infection, unspecified (principal); E11.22 Type 2 diabetes mellitus with diabetic chronic kidney disease; I12.0 Hypertensive chronic kidney disease with stage 5 chronic kidney disease or end stage renal disease; R18.8 Other ascites; E87.5 Hyperkalemia; N18.6 End stage renal disease; K52.9 Noninfective gastroenteritis and colitis, unspecified; D64.9 Anemia, unspecified; Z99.2 Dependence on renal dialysis; F41.9 Anxiety disorder, unspecified; E78.00 Pure hypercholesterolemia, unspecified; Z90.49 Acquired absence of other specified parts of digestive tract; F12.90 Cannabis use, unspecified, uncomplicated; R79.89 Other specified abnormal findings of blood chemistry; E78.5 Hyperlipidemia, unspecified; F32.9 Major depressive disorder, single episode, unspecified; Z79.899 Other long term (current) drug therapy; Z82.49 Family history of ischemic heart disease and other diseases of the circulatory system; Z83.3 Family history of diabetes mellitus
CPT/HCPCS: 74177; 87081; 87340; 93005; J0885; J1644; J1956; J2270; J2405; J3490; J7030; J7050

== ENCOUNTER 2020-04-30 18:49 | Emergency (ER) | payer OTHER ==
[~2020-04-30] VITALS: Ht 160 cm; Wt 62.4 kg
[~2020-04-30 18:49] MED LIST changes: -LABE100T5 PO; +LABE100T8 PO; -LOSA50TA2 PO; +LOSA50TA37 PO
[2020-04-30] MEDS ORDERED: HydrALAZINE HCL 20 MG/ML VIAL IVP ONE (19:15)
[2020-04-30] MEDS ORDERED: LORazepam 2 MG/ML VIAL IVP ONE (19:15)
[2020-04-30] MEDS ORDERED: MORPHINE SULFATE 2 MG/ML SYRINGE IVP ONE (19:15)
[2020-04-30 19:46] LABS: BASOPHILS % (AUTO) 1.3 % (0.0-2.0); EOSINOPHILS % (AUTO) 8.4 % (1.0-6.0); HEMATOCRIT 29.1 % (36-46); HEMOGLOBIN 9.8 g/dL (12.0-16.0); LYMPHOCYTES # (AUTO) 1.1 K/uL (1.0-4.8); LYMPHOCYTES % (AUTO) 10.6 % (22.0-44.0); MEAN CORPUSCULAR HEMOGLOBIN 32.3 pg (26.0-34.0); MEAN CORPUSCULAR HGB CONC 33.7 G/dL (31.0-37.0); MEAN CORPUSCULAR VOLUME 96 fL (80-100); MONOCYTES # (AUTO) 0.5 K/uL (0.1-1.0); MONOCYTES % (AUTO) 4.5 % (2.0-9.0); NEUTROPHILS # (AUTO) 7.9 K/uL (1.8-7.7); NEUTROPHILS % (AUTO) 75.2 % (40.0-70.0); PLATELET COUNT (AUTO) 358 K/uL (150-450); RED BLOOD CELL COUNT(AUTO) 3.04 MIL/uL (4.00-5.20); RED CELL DISTRIBUTION WIDTH 19.8 % (11.5-14.5)
[2020-04-30 19:57] LABS: CALCIUM, TOTAL 9.8 mg/dL (8.8-10.5); CREATININE 4.29 mg/dL (0.60-1.30); POTASSIUM 4.5 mmol/L (3.5-5.1)
[2020-04-30 21:57] VITALS: BP 150/77
== END 2020-04-30 22:18 | disposition home or self-care (01) ==
LOC: EMS 18:51
DX: I10 Essential (primary) hypertension (principal); G89.29 Other chronic pain; F32.9 Major depressive disorder, single episode, unspecified; F12.90 Cannabis use, unspecified, uncomplicated; Z79.899 Other long term (current) drug therapy
CPT/HCPCS: 36415; 71045; 80048; 85025; 93005; 96374; 96375; 99285; J0360; J2060; J2270